=== PATIENT | female | born 1955 | race Caucasian/White ===

== ENCOUNTER 2019-04-05 21:27 | Observation (INO) | payer MEDICARE, MEDICAID ==
[~2019-04-05] VITALS: Ht 170.2 cm; Wt 108.0 kg
[~2019-04-05 21:27] MED LIST: ALLP100T; COLC0.6T7 PO; EXEN10PE4; FOLI1TAB7; FURO40TA4; KCL10CCR; MAGN200T3; MTF500T; MYCO500T34; SPIR25TA3; [UNRECOGNIZED DRUG - OTHER]
[2019-04-05 21:45] LABS: BASOPHILS # (AUTO) 0.1 10^3/uL (0.0-0.1); BASOPHILS % (AUTO) 1 % (0-10); EOSINOPHILS # (AUTO) 0.5 10^3/uL (0.0-0.3); EOSINOPHILS % (AUTO) 4 % (0-10); HEMATOCRIT 44 % (35-52); HEMOGLOBIN 14.9 G/DL (11.5-16.0); LYMPHOCYTES # (AUTO) 7.2 X 10^3 (1.0-4.0); LYMPHOCYTES % (AUTO) 48 % (12-44); MEAN CORPUSCULAR HEMOGLOBIN 29 PG (25-34); MEAN CORPUSCULAR HGB CONC 34 G/DL (32-36); MEAN CORPUSCULAR VOLUME 87 FL (80-99); MEAN PLATELET VOLUME 10.9 FL (7.4-10.4); MONOCYTES # (AUTO) 1.6 X 10^3 (0.0-1.0); MONOCYTES % (AUTO) 11 % (0-12); NEUTROPHILS # (AUTO) 5.5 X 10^3 (1.8-7.8); NEUTROPHILS % (AUTO) 37 % (42-75); PLATELET COUNT 382 10^3/uL (130-400); RED CELL DISTRIBUTION WIDTH 14.6 % (10.0-14.5); WHITE BLOOD COUNT 14.9 10^3/uL (4.3-11.0)
[2019-04-05] MEDS ORDERED: ASPIRIN 81 MG CHEW (CHILDREN'S ASA) PO ONE (21:45)
[2019-04-05 21:58] LABS: INR 0.9 (0.8-1.4); PROTHROMBIN TIME PATIENT 12.1 SEC (12.2-14.7)
--- NOTE | 2019-04-05 22:02 | Diagnostic Imaging Report ---
INDICATION: Chest pain Upright portable AP view of the chest is obtained. There is borderline cardiomegaly. No pneumothorax or consolidation is identified. There is no significant pleural fluid. IMPRESSION: Borderline cardiomegaly without other acute abnormality detected. Dictated by: Dictated on workstation # [id number]
[2019-04-05 22:03] LABS: ALANINE AMINOTRANSFERASE 55 U/L (0-55); ALBUMIN 4.2 GM/DL (3.2-4.5); ALKALINE PHOSPHATASE 122 U/L (40-136); AMYLASE 43 U/L (25-125); BILIRUBIN,TOTAL 0.4 MG/DL (0.1-1.0); BUN/CREATININE RATIO 16; CALCIUM 9.9 MG/DL (8.5-10.1); CARBON DIOXIDE 24 MMOL/L (21-32); CHLORIDE 103 MMOL/L (98-107); CREATINE KINASE 83 U/L (29-168); CREATININE SERUM 1.02 MG/DL (0.60-1.30); GFR ESTIMATED 54; GLUCOSE 267 MG/DL (70-105); LIPASE 47 U/L (8-78); MAGNESIUM 2.4 MG/DL (1.8-2.4); POTASSIUM 3.6 MMOL/L (3.6-5.0); SODIUM 143 MMOL/L (135-145); TOTAL PROTEIN 7.8 GM/DL (6.4-8.2)
[2019-04-05 22:08] LABS: BAND NEUTROPHILS 0 %; BASOPHILS % (MANUAL) 0 %; EOSINOPHILS % (MANUAL) 5 %; LYMPHOCYTES % (MANUAL) 50 %; MONOCYTES % (MANUAL) 5 %; NEUTROPHILS % (MANUAL) 40 %; RBC MORPH NORMAL
--- NOTE | 2019-04-05 22:08 | ED Chest Pain ---
General Chief Complaint: Chest Pain Stated Complaint: CP Nursing Triage Note: PT AMB TO RM 6 WITH COMPLAINT OF INTERMITTENT CHEST PAIN. STATES PAIN STARTED APPROX HOUR AND 20 MINUTES PARTS COUNTERPERSON. STATES PAIN IS RESOLVED BY TIME OF ARRIVAL. Nursing Sepsis Screen: No Definite Risk Source: patient History of Present Illness Date Seen by Provider: April 05, 2019 Time Seen by Provider: 21:35 Initial Comments PT ARRIVES VIA POV FROM HOME STATES SHE BEGAN HAVING CHEST PAIN AROUND 1930 TONIGHT WHILE SITTING IN CHAIR PAIN WOULD COME AND GO, OVER ABOUT AN HOUR PAIN IS GONE NOW PT STATES SHE HAD BEEN [facility] AND TO [employer] [facility] TODAY, AND STATES SHE FELT A LITTLE SHORT OF BREATH ON THE CAR RIDE HOME, BECAUSE OF HIGH HUMIDITY AND NO AIR CONDITIONING ON IN THE CAR, BUT NO SHORTNESS OF BREATH SINCE THEN THEN DID A BIT OF "WEED EATING" FOR A SHORT PERIOD OF TIME, AND DID NOT HAVE ANY PROBLEMS WENT INSIDE AND SAT DOWN TO REST, AND HAD BEEN SITTING FOR AWHILE BEFORE THE PAIN BEGAN PT HAS NOT HAD SHORTNESS OF BREATH WITH THE PAIN NO SWEATS NO PALPITATIONS NO DIZZINESS NO NAUSEA/VOMITING NO SWELLING IN LEGS/ FEET OR PAIN IN CALVES PT HAS HISTORY OF CAD WITH STENT X 1 SEVERAL YEARS AGO--WAS DONE IN [place], [place]. HAS NOT SEEN A [employer] FOR YEARS PCP: DR. YORK STATES [place], AND MOVED BACK HERE 06/2018 Allergies and Home Medications Allergies Coded Allergies: Sulfa (Sulfonamide Antibiotics) (Verified Allergy, Unknown, 06/14/09) codeine (Verified Allergy, Unknown, 06/14/09) diazepam (Verified Allergy, Unknown, 06/14/09) Uncoded Allergies: TAPE (Allergy, Unknown, 06/14/09) Home Medications Colchicine 0.6 Mg Tablet, 1 EACH PO BID Prescribed by: JEREMY SELLERS on 04/11/10 1805 Folic Acid/Multivits-Min/Lut 1 Each Tab.chew, daily, (Reported) Furosemide 40 Mg Tablet, bid, (Reported) Mycophenolate Mofetil 500 Mg Tablet, bid, (Reported) Spironolactone 25 Mg Tablet, bid, (Reported) Patient Home Medication List Home Medication List Reviewed: Yes Review of Systems Review of Systems Constitutional: no symptoms reported; No chills, No dizziness, No fever, No malaise EENTM: No Symptoms Reported Respiratory: See HPI Cardiovascular: See HPI Gastrointestinal: No Symptoms Reported; Denies Abdominal Pain, Denies Nausea, Denies Vomiting; Other (S/P LIVER TRANSPLANT IN 1999) Genitourinary: No Symptoms Reported Musculoskeletal: no symptoms reported Skin: no symptoms reported Psychiatric/Neurological: No Symptoms Reported Endocrine: No Symptoms Reported (HAS IDDM) Hematologic/Lymphatic: No Symptoms Reported Past [id number]-Ahtwqs Hx Patient Social History Alcohol Use: Past History (HISTORY OF ABUSE, CLAIMS NONE FOR YEARS) Recreational Drug Use: Yes (HX OF IV CRACK COCAINE AND IV "DOWNERS"; METH USE, ACID, PCP, THC) Drug of Choice: +IV CRACK COCAINE AND "DOWNERS", SPEED/METH, LSD, PCP, THC Smoking Status: Never a Smoker Recent Foreign Travel: No Contact w/Someone Who Travel: No Recent Infectious Disease Expo: No Recent Hopitalizations: No Immunizations Up To Date Tetanus Booster (TDap): Unknown PED Vaccines UTD: Yes Seasonal Allergies Seasonal Allergies: No Past Medical History Surgeries: Yes (LIVER TRANSPLANT IN 1999; CARDIAC CATH--STENT X 1 IN 2012; HYST /BSO; 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, PER PT; RIGHT LUNG "SCRAPED" AND RIB REMOVED 1998; ) Abdominal, Gallbladder, Hysterectomy, Liver Transplant, Tonsillectomy Respiratory: Yes (RIGHT LUNG "SCRAPED" AND RIB REMOVED 1998) Cardiac: Yes (STENT X 1; "ANEURYSM BEHIND SPLEEN" ) Chronic Edema/Swelling, Coronary Artery Disease, High Cholesterol, Hypertension Neurological: No RN BEHAVIORAL HEALTH History: Hysterectomy Genitourinary: No Gastrointestinal: Yes (LIVER TRANSPLANT 1999; HEPATITIS C--S/P TREATMENT AND LIVER TRANSPLANT; 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, PER PT ) Liver Disease/Jaundice, Hepatitis Musculoskeletal: No Endocrine: Yes Diabetes, Insulin dep HEENT: No Tonsilitis Cancer: No Psychosocial: Yes (HX OF POLYSUBSTANCE ABUSE) Integumentary: No Blood Disorders: No Physical Exam Vital Signs Vital Signs - First Documented 04/05/19 21:30 Pulse 86 Resp 20 B/P (MAP) 176/107 (130) Pulse Ox 97 O2 Delivery Room Air Capillary Refill : Less Than 3 Seconds Height, Weight, BMI Height: 5'7.00" Weight: 233lbs. oz. 105.299564az; BMI Method:Stated General Appearance: No Apparent Distress, Obese, Other (SMILING, TALKATIVE) Neck: Full Range of Motion, Normal Inspection, Non Tender, Supple; No Carotid Bruit Respiratory: Chest Non Tender, Normal Breath Sounds, No Accessory Muscle Use, No Respiratory Distress Cardiovascular: Regular Rate, Rhythm, No Edema, No JVD, No Murmur, Normal Peripheral Pulses Gastrointestinal: Normal Bowel Sounds, No Organomegaly, No Pulsatile Mass, Non Tender, Soft Extremity: Normal Capillary Refill, Normal Inspection, Normal Range of Motion, Non Tender, No Calf Tenderness, No Pedal Edema Neurologic/Psychiatric: Alert, Oriented x3, No Motor/Sensory Deficits, Normal Mood/Affect, layout inspector II-XII Norm as Tested Skin: Normal Color, Warm/Dry Progress/Results/Core Measures Results/Orders Lab Results Laboratory Tests Test 04/05/19 21:39 Range/Units White Blood Count 14.9 H 4.3-11.0 10^3/uL Red Blood Count 5.11 4.35-5.85 10^6/uL Hemoglobin 14.9 11.5-16.0 G/DL Hematocrit 44 35-52 % Mean Corpuscular Volume 87 80-99 FL Mean Corpuscular Hemoglobin 29 25-34 PG Mean Corpuscular Hemoglobin Concent 34 32-36 G/DL Red Cell Distribution Width 14.6 H 10.0-14.5 % Platelet Count 382 130-400 10^3/uL Mean Platelet Volume 10.9 H 7.4-10.4 FL Neutrophils (%) (Auto) 37 L 42-75 % Lymphocytes (%) (Auto) 48 H 12-44 % Monocytes (%) (Auto) 11 0-12 % Eosinophils (%) (Auto) 4 0-10 % Basophils (%) (Auto) 1 0-10 % Neutrophils # (Auto) 5.5 1.8-7.8 X 10^3 Lymphocytes # (Auto) 7.2 H 1.0-4.0 X 10^3 Monocytes # (Auto) 1.6 H 0.0-1.0 X 10^3 Eosinophils # (Auto) 0.5 H 0.0-0.3 10^3/uL Basophils # (Auto) 0.1 0.0-0.1 10^3/uL Neutrophils % (Manual) 40 % Lymphocytes % (Manual) 50 % Monocytes % (Manual) 5 % Eosinophils % (Manual) 5 % Basophils % (Manual) 0 % Band Neutrophils 0 % Blood Morphology Comment NORMAL Prothrombin Time 12.1 L 12.2-14.7 SEC INR Comment 0.9 0.8-1.4 Activated Partial Thromboplast Time 29 24-35 SEC Sodium Level 143 135-145 MMOL/L Potassium Level 3.6 3.6-5.0 MMOL/L Chloride Level 103 98-107 MMOL/L Carbon Dioxide Level 24 21-32 MMOL/L Anion Gap 16 H 5-14 MMOL/L Blood Urea Nitrogen 16 7-18 MG/DL Creatinine 1.02 0.60-1.30 MG/DL Estimat Glomerular Filtration Rate 54 BUN/Creatinine Ratio 16 Glucose Level 267 H 70-105 MG/DL Calcium Level 9.9 8.5-10.1 MG/DL Corrected Calcium 9.7 8.5-10.1 MG/DL Magnesium Level 2.4 1.8-2.4 MG/DL Total Bilirubin 0.4 0.1-1.0 MG/DL Aspartate Amino Transf (AST/SGOT) 50 H 5-34 U/L Alanine Aminotransferase (ALT/SGPT) 55 0-55 U/L Alkaline Phosphatase 122 40-136 U/L Total Creatine Kinase 83 29-168 U/L Creatine Kinase MB 0.8 <6.6 NG/ML Myoglobin 42.2 10.0-92.0 NG/ML Troponin I < 0.028 <0.028 NG/ML B-Type Natriuretic Peptide 104.6 H <100.0 PG/ML Total Protein 7.8 6.4-8.2 GM/DL Albumin 4.2 3.2-4.5 GM/DL Amylase Level 43 25-125 U/L Lipase 47 8-78 U/L My Orders Orders - MARYELLEN VICTORIA DO Cbc With Automated Diff (04/05/19 21:34) Magnesium (04/05/19 21:34) Chest 1 View, Ap/Pa Only (04/05/19 21:34) Ekg Tracing (04/05/19 21:34) Cardiac Profile 1 (04/05/19 21:34) Comprehensive Metabolic Panel (04/05/19 21:34) Myoglobin Serum (04/05/19 21:34) Protime With Inr (04/05/19 21:34) Partial Thromboplastin Time (04/05/19 21:34) O2 (04/05/19 21:34) Monitor-Rhythm Ecg Trace Only (04/05/19 21:34) Ed Iv/Invasive Line Start (04/05/19 21:34) Creatine Kinase (04/05/19 21:34) Creatine Kinase Mb (04/05/19 21:34) Lipase (04/05/19 21:34) Amylase (04/05/19 21:34) BNP (04/05/19 21:34) Aspirin Chewable Tablet (Baby Aspirin Ch (04/05/19 21:45) Manual Differential (04/05/19 21:39) Insulin (Regular) Human (Humulin R (Per (04/05/19 22:30) Medications Given in ED Current Medications Medications Dose Ordered Sig/Brett Route Start Time Stop Time Status Last Admin Dose Admin Aspirin 324 mg ONCE ONCE PO 04/05/19 21:45 04/05/19 21:46 DC 04/05/19 21:48 324 MG Insulin Human Regular 20 unit ONCE ONCE IV 04/05/19 22:30 04/05/19 22:31 DC 04/05/19 22:43 20 UNIT Sodium Chloride 50 ml @ ud STK-MED ONCE .ROUTE 04/05/19 22:39 04/05/19 22:43 DC 04/05/19 22:43 50 MLS/HR Vital Signs/I&O 04/05/19 21:30 Pulse 86 Resp 20 B/P (MAP) 176/107 (130) Pulse Ox 97 O2 Delivery Room Air Blood Pressure Mean: 130 Progress Progress Note : Progress Note NO PAIN OR ANY OTHER SYMPTOMS DURING ER STAY Initial ECG Impression Date: April 05, 2019 Initial ECG Impression Time: 21:36 Initial ECG Rate: 80 Initial ECG Rhythm: Normal Sinus Departure Communication (Admissions) 2236--SPOKE WITH DR. SELLERS, ACCEPTS PT FOR ADMIT. Impression Primary Impression: Chest pain Additional Impressions: IDDM (insulin dependent diabetes mellitus) S/P liver transplant Disposition: ADMITTED INPATIENT Condition: Improved Admissions Decision to Admit Reason: Admit from ER (General) Decision to Admit/Date: April 05, 2019 Time/Decision to Admit Time: 23:40 Departure-Patient Inst. Referrals: DARIUSZ YORK DO (PCP/Family) Primary Care Physician MARYELLEN VICTORIA DO April 05, 2019 22:08
[2019-04-05 22:11] LABS: CREATINE KINASE MB 0.8 NG/ML (<6.6)
[2019-04-05] MEDS ORDERED: inSUlin (REGULAR) HUMAN 1 UNIT/0.01 ML (CHARGE PER UNIT) IV ONE (22:30)
[2019-04-05] MEDS ORDERED: NS (IVPB) 50 ML ONE (22:39)
[2019-04-05] MEDS ORDERED: TACROLIMUS 0.5 MG CAPSULE (22:51)
[2019-04-05] MEDS ORDERED: METFORMIN HCL ER 500 MG TABLET (22:51)
[2019-04-05] MEDS ORDERED: HYDROXYZINE PAM (22:51)
[2019-04-05] MEDS ORDERED: TRAZODONE 100 MG TABLET (22:51)
[2019-04-05] MEDS ORDERED: PAK (22:51)
[2019-04-05] MEDS ORDERED: VICTOZA (22:51)
[2019-04-05] MEDS ORDERED: MYCOPHENOLATE 250 MG CAPSULE (22:51)
[2019-04-05] MEDS ORDERED: FUROSEMIDE 40 MG TABLET (22:51)
[2019-04-05] MEDS ORDERED: POTASSIUM CL ER 10 MEQ TABLET (22:51)
--- NOTE | 2019-04-05 23:38 | NUR ---
TATY PAYNE admitted to room CU12-1, with an admitting diagnosis of Chest pain,IDDM,Hx of CAD, S/P Liver transplant 1999, on 04/05/19 from [facility] ED via wheelchair, accompanied by staff.TATY PAYNE introduced to surroundings, call light, bed controls, phone, TV, temperature control, lights, meal times, smoking policy, visitor policy, side rail policy, bathrooms and showers. Patient Rights given to patient in the handbook. TATY PAYNE verbalizes understanding that [facility] is not responsible for the loss or damage to any personal effects or valuables that are kept in the patients possession during their hospitalization. The following Patient Care Plans were discussed with the patient: Discharge Planning, chest pain,protocol, and room orientation. TATY PAYNE verbalizes understanding of Interdisciplinary Patient Education. Patient and/or family were informed about the Rapid Response Team and its purpose.
[2019-04-05 23:47] VITALS: BP 141/81
[2019-04-06] VITALS (13 sets, daily range): BP systolic 99–144; BP diastolic 54–78
--- NOTE | 2019-04-06 00:33 | NUR ---
Patient arrived to ICU room 12 via wheelchair. Patient daughter in route from [place]. Patient had elevated Glucose of 267 via lab in ED, was administered 20 units IV insulin. Patient glucose via finger stick upon arrival to ICU room is 61.
[2019-04-06] MEDS ORDERED: morphine INJ 4 MG/ML 1 ML (VIAL/SYRINGE) IV PRN (01:00)
[2019-04-06] MEDS ORDERED: NITROGLYCERIN 0.4 MG SL TABS BTL 25'S SL PRN (01:00)
[2019-04-06 03:53] LABS: BASOPHILS # (AUTO) 0.1 10^3/uL (0.0-0.1); BASOPHILS % (AUTO) 1 % (0-10); EOSINOPHILS # (AUTO) 0.6 10^3/uL (0.0-0.3); EOSINOPHILS % (AUTO) 3 % (0-10); HEMATOCRIT 40 % (35-52); HEMOGLOBIN 13.2 G/DL (11.5-16.0); LYMPHOCYTES # (AUTO) 7.4 X 10^3 (1.0-4.0); LYMPHOCYTES % (AUTO) 39 % (12-44); MEAN CORPUSCULAR HEMOGLOBIN 29 PG (25-34); MEAN CORPUSCULAR HGB CONC 33 G/DL (32-36); MEAN CORPUSCULAR VOLUME 87 FL (80-99); MEAN PLATELET VOLUME 10.7 FL (7.4-10.4); MONOCYTES # (AUTO) 2.3 X 10^3 (0.0-1.0); MONOCYTES % (AUTO) 12 % (0-12); NEUTROPHILS # (AUTO) 8.4 X 10^3 (1.8-7.8); NEUTROPHILS % (AUTO) 45 % (42-75); PLATELET COUNT 360 10^3/uL (130-400); RED CELL DISTRIBUTION WIDTH 14.4 % (10.0-14.5); WHITE BLOOD COUNT 18.7 10^3/uL (4.3-11.0)
[2019-04-06 04:18] LABS: ALANINE AMINOTRANSFERASE 51 U/L (0-55); ALBUMIN 3.5 GM/DL (3.2-4.5); ALKALINE PHOSPHATASE 104 U/L (40-136); BILIRUBIN,TOTAL 0.3 MG/DL (0.1-1.0); BUN/CREATININE RATIO 17; CALCIUM 9.5 MG/DL (8.5-10.1); CARBON DIOXIDE 26 MMOL/L (21-32); CHLORIDE 106 MMOL/L (98-107); CHOLESTEROL 217 MG/DL (< 200); CREATININE SERUM 0.88 MG/DL (0.60-1.30); GFR ESTIMATED > 60; GLUCOSE 251 MG/DL (70-105); HDL CHOLESTEROL 43 MG/DL (40-60); POTASSIUM 3.1 MMOL/L (3.6-5.0); SODIUM 144 MMOL/L (135-145); TOTAL PROTEIN 6.3 GM/DL (6.4-8.2); TRIGLYCERIDES 179 MG/DL (<150); VLDL CHOLESTEROL 36 MG/DL (5-40)
[2019-04-06 04:26] LABS: CARDIAC PROFILE 2 < 0.028 NG/ML (<0.028)
[2019-04-06] MEDS: inSUlin ASPART (NovoLOG) 1 UNIT/0.01 ML (CHARGE PER UNIT) SC SCH ×4 (06:05→21:41)
[2019-04-06] MEDS ORDERED: POTA10TA10 PO (08:32)
[2019-04-06] MEDS ORDERED: ASPIRIN E.C. 81 MG (ECOTRIN) TAB PO SCH (09:00)
[2019-04-06] MEDS ORDERED: TRAZ-190 PO (09:02)
[2019-04-06] MEDS ORDERED: INSU100I32 SC (09:02)
[2019-04-06] MEDS ORDERED: ALLO100T PO (09:02)
[2019-04-06] MEDS ORDERED: HYDR50CA3 PO (09:02)
[2019-04-06] MEDS ORDERED: METF500T8 PO (09:02)
[2019-04-06] MEDS ORDERED: MOME17SP9 NS (09:02)
[2019-04-06] MEDS ORDERED: CARV6.252 PO (09:02)
[2019-04-06] MEDS ORDERED: LIRA0.6P3 SC (09:02)
[2019-04-06] MEDS ORDERED: MYCO250C4 PO (09:02)
[2019-04-06] MEDS ORDERED: FURO40TA4 PO (09:02)
[2019-04-06] MEDS ORDERED: TACR0.5C6 PO (09:02)
[2019-04-06] MEDS ORDERED: NIAC500T24 PO (09:09)
[2019-04-06] MEDS ORDERED: MELA10TA2 PO (09:09)
[2019-04-06] MEDS ORDERED: ASPI-983 PO (09:09)
[2019-04-06] MEDS ORDERED: MULT-1029 PO (09:09)
[2019-04-06] MEDS ORDERED: MAGN400T39 PO (09:09)
[2019-04-06] MEDS ORDERED: CHOL10007 PO (09:09)
[2019-04-06] MEDS ORDERED: NFBIOT1000 PO (09:09)
[2019-04-06] MEDS ORDERED: RED600CA2 PO (09:09)
[2019-04-06] MEDS ORDERED: CALC1TAB PO (09:16)
--- NOTE | 2019-04-06 09:17 | NUR ---
WENT OVER THE EXT MED HX WITH THE PATIENT AND SHE VERIFIED HOW SHE TAKES THEM. SHE STATES SHE IS NO LONGER TAKING THE METFORMIN, IT HAS BEEN DISCONTINUED. SHE TAKES THE FOLLOWING OTC: CALTRATE DAILY VITAMIN D 2 DAILY AT 1100 ASPIRIN 81MG 1500 NIACIN 2 HS RED YEAST RICE 2 HS BIOTIN HS MAG OX 400 BID MELATONIN 10MG HS MTV DAILY
--- NOTE | 2019-04-06 13:20 | Consultation-Cardiology ---
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 She presented with an episode of prolonged chest pain which was substernal. No radiation. Sharp, not going away. Moderate to severe intensity. No exacerbating or relieving factors. The patient has history of CAD and PCI 2 years ago, likely to the LAD. The patient also has history of diabetes, hepatitis C, cirrhosis of the liver, status post liver transplant on immunosuppressive therapy with CellCept and Prograf. The patient has not had any nuclear stress test since the PCI. However she tells me that she cannot have a chemical nuclear stress test. Review of Systems-Cardiology Review of Systems Constitutional: As described under HPI; No As described under HPI, No no symptoms reported, No chills, No fever, No lightheadedness Eyes: No As described under HPI, No no symptoms reported, No blindness, No blurred vision, No contact lenses, No drainage, No decreased acuity, No foreign body sensation, No pain, No vision change Ears/Nose/Throat: No As described under HPI, No no symptoms reported, No chronic hearing loss, No ear discharge, No ear pain, No nasal drainage, No ulcerations Respiratory: No no symptoms reported; As described under HPI; No As described under HPI, No cough, No orthopnea, No shortness of breath, No SOB with excertion Cardiovascular: No no symptoms reported; As described under HPI; No As described under HPI; chest pain; No edema, No irregular heart rate, No lightheadedness, No palpitations Gastrointestinal: No no symptoms reported, No As described under HPI, No abdomen distended, No abdominal pain, No blood streaked bowels, No constipation , No diarrhea, No nausea, No vomiting, No stool coloration changes Genitourinary: No As described under HPI, No burning, No dysuria, No discharge , No frequency, No flank pain, No hematuria, No urgency : Yes : No Skin: No rash, No skin related problems, No ulcerations Psychiatric/Neurological: No anxiety, No depression, No seizure, No focal weakness, No syncope Hematologic: No bleeding abnormalities [id number] Hx Patient Social History Alcohol Use: Past History (HISTORY OF ABUSE, CLAIMS NONE FOR YEARS) Recreational Drug Use: Yes (HX OF IV CRACK COCAINE AND IV "DOWNERS"; METH USE, ACID, PCP, THC) Drug of Choice: +IV CRACK COCAINE AND "DOWNERS", SPEED/METH, LSD, PCP, THC Smoking Status: Never a Smoker Recent Foreign Travel: No Recent Infectious Disease Expo: No Hospitalization with Isolation: Denies Immunizations Up To Date Tetanus Booster (TDap): Unknown Date of Pneumonia Vaccine: Sep 06, 2018 Past Medical History PMH As described under Assessment. Family Medical History Family History: Cirrhosis of liver 19 MOTHER, , Onset:60 years & older Diabetes mellitus 19 MOTHER, , Onset:Unknown FH: CHF (congestive heart failure) 19 FATHER, , Onset:60 years & older FH: CVA (cerebrovascular accident) 19 MOTHER, , Onset:60 years & older FH: cerebral palsy G8 BROTHER, , Onset:Childhood FH: ovarian cancer G8 SISTER, , Onset:40's - 50 Myocardial infarction 19 MOTHER, , Onset:60 years & older Stillbirth G8 BROTHER, , Onset:[place] Allergies and Home Medications Allergies Coded Allergies: Sulfa (Sulfonamide Antibiotics) (Verified Allergy, Unknown, 06/14/09) codeine (Verified Allergy, Unknown, 06/14/09) diazepam (Verified Allergy, Unknown, 06/14/09) Uncoded Allergies: TAPE (Allergy, Unknown, 06/14/09) Home Medications Allopurinol 100 Mg Tablet, 100 MG PO BID, (Reported) Aspirin 81 Mg Tablet.dr, 81 MG PO 1500, (Reported) Biotin 1,000 Mcg Tablet, 1,000 MCG PO HS, (Reported) Calcium Carbonate/Vitamin D3 1 Each Tablet, 1 TAB PO DAILY, (Reported) Carvedilol 6.25 Mg Tablet, 6.25 MG PO BID, (Reported) Cholecalciferol (Vitamin D3) 1,000 Unit Capsule, 2,000 UNIT PO 1100, (Reported) Furosemide 40 Mg Tablet, 40 MG PO BID, (Reported) Hydroxyzine Pamoate 50 Mg Capsule, 50 MG PO HS, (Reported) Insulin Degludec 100 Unit/1 Ml Insuln.pen, 36 UNITS SC DAILY, (Reported) Liraglutide 0.6 Mg/0.1 Ml Pen.injctr, 1.8 MG SC DAILY, (Reported) Magnesium Oxide 400 Mg Tablet, 400 MG PO BID, (Reported) Melatonin 10 Mg Tablet, 10 MG PO HS, (Reported) Mometasone Furoate 17 Gm [place].pump, 2 SPRAYS NS DAILY PRN for CONGESTION, ( Reported) Multivit-Min/FA/Lycopene/Lut 1 Each Tablet, 1 TAB PO DAILY, (Reported) Mycophenolate Mofetil 250 Mg Capsule, 250 MG PO BID, (Reported) Niacinamide 500 Mg Tablet, 1,000 MG PO HS, (Reported) Potassium Chloride 10 Meq Tablet.er, 10 MEQ PO BID, (Reported) Red Yeast Rice 600 Mg Capsule, 1,200 MG PO HS, (Reported) Tacrolimus 0.5 Mg Capsule, 0.5 MG PO BID, (Reported) Trazodone HCl 100 Mg Tablet, 100 MG PO HS PRN for SLEEP, (Reported) Patient Home Medication List Home Medication List Reviewed: Yes Physical Exam-Cardiology Physical Exam Vital Signs/I&O 04/06/19 04/06/19 04/06/19 04/06/19 02:00 03:00 03:35 04:00 Temp 97.2 Pulse 93 87 82 Resp 16 13 11 B/P (MAP) 139/64 (89) 125/64 (84) 114/54 (74) Pulse Ox 95 95 95 O2 Delivery Room Air Room Air Room Air Room Air 04/06/19 04/06/19 04/06/19 04/06/19 05:00 07:09 08:00 09:00 Temp 97.1 Pulse 84 81 81 Resp 8 14 B/P (MAP) 112/64 (80) 142/75 (97) Pulse Ox 96 97 96 O2 Delivery Room Air Room Air Room Air 04/06/19 12:03 Temp 97.8 Pulse 79 Resp 14 B/P (MAP) 127/78 (94) Pulse Ox 95 O2 Delivery Room Air 04/05/19 23:59 Intake Total 50 ml Balance 50 ml Capillary Refill : Less Than 3 Seconds Constitutional: appears stated age, AAO x 3; No apparent distress; well- developed, well-nourished HEENT: PERRL; No normal ENT inspection, No TMs normal, No pharynx normal, No scleral icterus (R), No scleral icterus (L), No pale conjunctivae (R), No pale conjunctivae (L), No photophobia, No TM abnormal (R), No TM abnormal (L), No pharyngeal erythema, No tonsillar exudate, No other, No discharge, No EOMI; hearing is well preserved; No hard of hearing; oral hygience is good; No ulceration, No xanthelasmas are seen Neck: No non-tender, No full range of motion, No supple, No normal inspection, No carotid bruit, No limited range of motion, No lymphadenopathy (R), No lymphadenopathy (L), No tender lateral, No tender midline, No thyromegaly, No other; carotid pulses are 2 + bilaterally; No with good upstrokes Respiratory: No accessory muscle use, No respiratory distress, No chest tender , No chest expansion is symmetric; chest is bilaterally symmetric; No lungs clear to percussion, No lungs clear to auscultation, No crackles, No rhonchi, No rales, No stridor, No wheezing, No pleural rub, No other Cardiovascular: regular rate-rhythm; No irregularly irregular, No extra beats, No parasternal heave is noted, No JVD, No edema, No bradycardia, No tachycardia , No point of maximal impulse, No cardiac thrills are palpable; S1 and S2; No gallop/S3, No gallop/S4, No diastolic murmur, No systolic murmur, No friction rub, No click, No other Gastrointestinal: No tender, No soft, No round, No distended, No pulsatile mass , No organomegaly, No guarding, No rebound, No tenderness, No hernia, No mass, No audible bowel sounds, No abnormal bowel sounds, No abdominal bruits, No spleenomegaly, No other Rectal: deferred Extremities: No normal range of motion, No non-tender, No normal inspection, No pedal edema, No calf tenderness, No normal capillary refill, No pelvis stable , No calf tenderness, No inflammation, No pedal edema, No slow capillary refill , No swelling, No other, No abrasion, No clubbing, No cyanosis, No ecchymosis, No laceration, No no lower extremity edema bilateral, No significant edema, No tenderness, No wound Neurologic/Psychiatric: no motor/sensory deficits, alert, normal mood/affect, oriented x 3, power is 5/5 both on sides Skin: No normal color, No warm/dry, No cyanosis, No cool, No diaphoresis, No damp, No ecchymosis, No jaundice, No mottled, No pallor, No rash, No tattoos/ piercings, No ulcerations, No rash on exposed areas, No ulcerations on exposed areas, No other Data Review Labs Laboratory Tests 04/05/19 21:39: White Blood Count 14.9H, Red Blood Count 5.11, Hemoglobin 14.9, Hematocrit 44, Mean Corpuscular Volume 87, Mean Corpuscular Hemoglobin 29, Mean Corpuscular Hemoglobin Concent 34, Red Cell Distribution Width 14.6H, Platelet Count 382, Mean Platelet Volume 10.9H, Neutrophils (%) (Auto) 37L, Lymphocytes (%) (Auto) 48H, Monocytes (%) (Auto) 11, Eosinophils (%) (Auto) 4, Basophils (%) (Auto) 1, Neutrophils # (Auto) 5.5, Lymphocytes # (Auto) 7.2H, Monocytes # (Auto) 1.6H, Eosinophils # (Auto) 0.5H, Basophils # (Auto) 0.1, Neutrophils % (Manual) 40, Lymphocytes % (Manual) 50, Monocytes % (Manual) 5, Eosinophils % (Manual) 5, Basophils % (Manual) 0, Band Neutrophils 0, Blood Morphology Comment NORMAL, Prothrombin Time 12.1L, INR Comment 0.9, Activated Partial Thromboplast Time 29 , Sodium Level 143, Potassium Level 3.6, Chloride Level 103, Carbon Dioxide Level 24, Anion Gap 16H, Blood Urea Nitrogen 16, Creatinine 1.02, Estimat Glomerular Filtration Rate 54, BUN/Creatinine Ratio 16, Glucose Level 267H, Calcium Level 9.9, Corrected Calcium 9.7, Magnesium Level 2.4, Total Bilirubin 0.4, Aspartate Amino Transf (AST/SGOT) 50H, Alanine Aminotransferase (ALT/SGPT) 55, Alkaline Phosphatase 122, Total Creatine Kinase 83, Creatine Kinase MB 0.8, Myoglobin 42.2, Troponin I < 0.028, B-Type Natriuretic Peptide 104.6H, Total Protein 7.8, Albumin 4.2, Amylase Level 43, Lipase 47 04/05/19 23:09: Glucometer 141H 04/05/19 23:50: Glucometer 61L 04/06/19 00:08: Glucometer 99 04/06/19 03:45: White Blood Count 18.7H, Red Blood Count 4.59, Hemoglobin 13.2, Hematocrit 40, Mean Corpuscular Volume 87, Mean Corpuscular Hemoglobin 29, Mean Corpuscular Hemoglobin Concent 33, Red Cell Distribution Width 14.4, Platelet Count 360, Mean Platelet Volume 10.7H, Neutrophils (%) (Auto) 45, Lymphocytes (%) (Auto) 39 , Monocytes (%) (Auto) 12, Eosinophils (%) (Auto) 3, Basophils (%) (Auto) 1, Neutrophils # (Auto) 8.4H, Lymphocytes # (Auto) 7.4H, Monocytes # (Auto) 2.3H, Eosinophils # (Auto) 0.6H, Basophils # (Auto) 0.1, Sodium Level 144, Potassium Level 3.1L, Chloride Level 106, Carbon Dioxide Level 26, Anion Gap 12, Blood Urea Nitrogen 15, Creatinine 0.88, Estimat Glomerular Filtration Rate > 60, BUN/ Creatinine Ratio 17, Glucose Level 251H, Calcium Level 9.5, Corrected Calcium 9.9, Total Bilirubin 0.3, Aspartate Amino Transf (AST/SGOT) 41H, Alanine Aminotransferase (ALT/SGPT) 51, Alkaline Phosphatase 104, Troponin I < 0.028, Total Protein 6.3L, Albumin 3.5, Triglycerides Level 179H, Cholesterol Level 217H, LDL Cholesterol Direct 160H, VLDL Cholesterol 36, HDL Cholesterol 43 04/06/19 06:03: Glucometer 173H 04/06/19 12:16: Glucometer 166H ECG Impression ECG Initial ECG Rhythm: Normal Sinus Initial ECG Impression: Normal A/P-Cardiology Assessment/Admission Diagnosis Prolonged episode of chest pain, History of CAD, Diabetes, Hyperlipidemia, Hypertension, History of liver transplant, on immunosuppressive therapy, Leukocytosis Plan Prolonged episode of chest pain, serial negative troponin. Negative EKG. I will recommend a treadmill nuclear stress test tomorrow. I would also recommend an echocardiogram. History of CAD, continue aspirin, carvedilol. Diabetes, on insulin. Hyperlipidemia, significantly elevated total cholesterol and LDL. The patient is not on any statins. Only on red yeast. Considering history of liver transplant, I will consider pravastatin or ezetimibe. Hypertension, continue carvedilol. History of liver transplant, on immunosuppressive therapy, defer to the primary team. Leukocytosis, deferred to the primary team. Thank you for your consultation. Please call me if you have any questions. Darin Cabrera MD, FACP, FACC, FSCAI, FHRS, CCDS Interventional Cardiology Cardiac Electrophysiology Vascular Medicine and Endovascular Interventions Clinical Quality Measures AMI/AHF: ASA po Prior to arrival: Yes DVT/VTE Risk/Contraindication: Risk Factor Score Per Nursin RFS Level Per Nursing on Admit: 3=High Serenity CABRERA MD April 06, 2019 13:20
[2019-04-06] MEDS ORDERED: PATIENT MAY USE OWN MEDS, ALL MC SCH (13:30)
[2019-04-06] MEDS ORDERED: traZODone 100 MG (DESYREL) TAB PO PRN (14:00)
[2019-04-06] MEDS ORDERED: FLUTICASONE NASAL SPRAY (FLONASE) 16 GM BTL NS PRN (14:41)
[2019-04-06] MEDS ORDERED: ASPIRIN 81 MG CHEW (CHILDREN'S ASA) PO SCH (15:00)
[2019-04-06] MEDS: VITAMIN D3 1,000 UNITS (CHOLECALCIFEROL) TABLET PO SCH (15:44)
--- NOTE | 2019-04-06 16:28 | History & Physical-Hospitalist ---
History of Present Illness HPI/Chief Complaint The patient is a 64-year-old white female who presented to the emergency room last evening with complaints of chest pain. She reports that the pain began about an hour and a half before she presented to the emergency room. She noted that she had done yard work including weed eating earlier in the day. Also of interest was the fact that she is a diabetic and also that she has a liver transplant which was done in 1999 as a result of hepatitis C. Date Seen 04/06/19 Time Seen by a Provider: 16:21 Attending Physician Sean Sellers MD PCP Gabriel Tineo DO Referring Physician Date of Admission April 05, 2019 at 22:40 Home Medications & Allergies Home Medications Reviewed patient Home Medication Reconciliation performed by pharmacy medication reconciliations community development technician and/or nursing. Patients Allergies have been reviewed. Allergies Allergies Coded Allergies Sulfa (Sulfonamide Antibiotics) (Verified Allergy, Unknown, 06/14/09) codeine (Verified Allergy, Unknown, 06/14/09) diazepam (Verified Allergy, Unknown, 06/14/09) Uncoded Allergies TAPE ( Allergy, Unknown, 06/14/09) Past Jmlvcel-Ljuuff-Zuimkc Hx Patient Social History Alcohol Use: Past History (HISTORY OF ABUSE, CLAIMS NONE FOR YEARS) Recreational Drug Use: Yes (HX OF IV CRACK COCAINE AND IV "DOWNERS"; METH USE, ACID, PCP, THC) Drug of Choice: +IV CRACK COCAINE AND "DOWNERS", SPEED/METH, LSD, PCP, THC Smoking Status: Never a Smoker Recent Foreign Travel: No Contact w/other who traveled: No Recent Hopitalizations: No Recent Infectious Disease Expo: No Immunizations Up To Date Tetanus Booster (TDap): Unknown Pediatric: Yes Date of Pneumonia Vaccine: Sep 06, 2018 Seasonal Allergies Seasonal Allergies: No Past Medical History Surgeries: Abdominal, Gallbladder, Hysterectomy, Liver Transplant, Tonsillectomy Cardiac: Chronic Edema/Swelling, Coronary Artery Disease, High Cholesterol, Hypertension : No Hysterectomy Gastrointestinal: Liver Disease/Jaundice, Hepatitis Endocrine: Diabetes, Insulin dep HEENT: Tonsilitis History of Blood Disorders: No Family History Cirrhosis of liver 19 MOTHER, , Onset:60 years & older Diabetes mellitus 19 MOTHER, , Onset:Unknown FH: CHF (congestive heart failure) 19 FATHER, , Onset:60 years & older FH: CVA (cerebrovascular accident) 19 MOTHER, , Onset:60 years & older FH: cerebral palsy G8 BROTHER, , Onset:Childhood FH: ovarian cancer G8 SISTER, , Onset:40's - 50 Myocardial infarction 19 MOTHER, , Onset:60 years & older Stillbirth G8 BROTHER, , Onset: Review of Systems Constitutional: see HPI EENTM: no symptoms reported Respiratory: no symptoms reported Cardiovascular: see HPI, chest pain Gastrointestinal: other (liver transplant) Physical Exam Physical Exam Vital Signs Vital Signs - First Documented 04/05/19 04/05/19 21:30 23:47 Temp 98.0 Pulse 86 Resp 20 B/P (MAP) 176/107 (130) Pulse Ox 97 O2 Delivery Room Air Capillary Refill : Less Than 3 Seconds Height, Weight, BMI Height: 5'7.00" Weight: 238lbs. 0.0oz. [id number]; 37.3 BMI Method:Stated General Appearance: No Apparent Distress, WD/WN Eyes: Bilateral Eye Normal Inspection HEENT: Normal ENT Inspection Neck: Full Range of Motion, Normal Inspection, Non Tender Respiratory: Chest Non Tender, Lungs Clear, Normal Breath Sounds, No Accessory Muscle Use, No Respiratory Distress Cardiovascular: Regular Rate, Rhythm, No Edema, No Gallop, No JVD, No Murmur Gastrointestinal: Normal Bowel Sounds, Non Tender Back: Normal Inspection Neurologic/Psychiatric: Alert, Oriented x3, No Motor/Sensory Deficits, Normal Mood/Affect Skin: Normal Color, Warm/Dry Lymphatic: No Adenopathy Results Results/Procedures Labs Laboratory Tests 04/05/19 21:39 04/06/19 03:45 Patient resulted labs reviewed. Assessment/Plan Admission Diagnosis Chest pain 2.diabetes type II. 3.history hepatitis C with liver transplant in 1999. 4.leukocytosis with lymphocytes dominance. 5.immunosuppression relative to liver transplant Admission Status: Inpatient Order (span 2 midnights) Clinical Quality Measures AMI/AHF: ASA po Prior to arrival: Yes DVT/VTE Risk/Contraindication: Risk Factor Score Per Nursin RFS Level Per Nursing on Admit: 3=High SEAN SELLERS MD April 06, 2019 16:28
[2019-04-06] MEDS: ACETAMINOPHEN 325 MG TABLET PO PRN ×2 (16:33→21:45)
[2019-04-06] MEDS ORDERED: KCL 10 MEQ TAB (MICRO K) PO SCH (17:00)
[2019-04-06] MEDS ORDERED: MAGNESIUM OXIDE (MAG-OX)400 MG TAB PO SCH (17:00)
[2019-04-06] MEDS ORDERED: FUROSEMIDE 40 MG (LASIX) TAB PO SCH (17:00)
[2019-04-06] MEDS ORDERED: BIOTIN 10000 MCG PO SCH (21:00)
[2019-04-06] MEDS ORDERED: HYDROXYZINE PAM PO SCH (21:00)
[2019-04-06] MEDS ORDERED: NIACIN 500 MG TABLET PO SCH (21:00)
[2019-04-06] MEDS ORDERED: MELATONIN 3 MG TABLET PO SCH (21:00)
--- NOTE | 2019-04-06 21:26 | CONSULTATION REPORT ---
DATE OF SERVICE: 04/06/2019 REFERRING PHYSICIAN: Sean Jenkins MD THE PATIENT IS ADMITTED TO: ICU bed 12. IMPRESSION: 1. A 64-year-old female admitted to the hospital with chest pain and undergoing workup. 2. Leukocytosis and lymphocytosis of undetermined etiology. 3. Previous history of splenectomy approximately 6 years ago. 4. Previous history of liver transplant in 1999. RECOMMENDATIONS: 1. The leukocytosis is most likely due to splenectomy, but because of the disproportionate lymphocytosis, I will obtain a peripheral blood flow cytometry to rule out a lymphoproliferative disorder. 2. Continue workup and management of chest pain as you are doing. 3. Please schedule two to three weeks follow up [facility] to review the results of the flow cytometry. HISTORY OF PRESENT ILLNESS: The patient is a 64-year-old female who has history of coronary artery disease and stent placement in the distant past who came to the emergency room with the chest pain. She was admitted to the hospital for further evaluation and is planning an exercise stress test done tomorrow. She was noted to have leukocytosis and lymphocytosis at the time of admission and hematology consultation was requested for further evaluation. The patient denied any fevers or night sweats. No significant weight loss over the last six months even though she has been trying to lose weight. No new lumps or masses. PAST MEDICAL HISTORY: Significant for diabetes mellitus, history of hepatitis C and underwent liver transplantation in 1999. She has had treatment for the hepatitis C at least twice with clearance of virus several years ago. She has previous history of coronary artery disease requiring a stent placement several years ago. PAST SURGICAL HISTORY: Includes tonsillectomy and adenoidectomy in childhood. Cholecystectomy with liver transplant in 1999. TAHBSO in the past. She had a right lung biopsy in 1998. 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 Also had a cardiac catheterization and stent placement in 2012. SOCIAL HISTORY: The patient is single. She had lived with her partner for 29 years, but about 2 years ago. 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 She has significant history of polysubstance abuse including crack cocaine, methamphetamine, PCP acid, THC, etc. including IV. She denied any tobacco or substance abuse now, but occasionally uses small amount of alcohol on social situations. She has a daughter who lives near [place]. FAMILY HISTORY: Significant for her sister who with ovarian cancer while in her early 40s. Cousin on the paternal side of the family diagnosed with breast cancer in her early 40s. No other malignancies in the family that the patient knows of. Her mother had diabetes mellitus. PHYSICAL EXAMINATION: GENERAL: Today showed a middle-aged female, well developed and nourished, awake and oriented and in no acute distress. VITAL SIGNS: Her temperature was 97.8, pulse rate of 79, respirations 14, blood pressure 127/78 with oxygen saturation of 95% on room air. HEENT: Normocephalic, extraocular muscles intact, conjunctivae pink, oral mucosa are moist without lesions. NECK: Supple, with no JVD. No cervical, supraclavicular or axillary lymphadenopathy palpable. CHEST: Symmetrical. LUNGS: Fairly clear to auscultation without wheezes or rales. CARDIOVASCULAR: Regular rate and rhythm. No murmurs or gallops heard. ABDOMEN: Soft with healed surgical scars. No hepatosplenomegaly or other masses palpable. EXTREMITIES: Showed no edema or ecchymosis. NEUROLOGIC: Grossly intact without focal motor deficits. LABORATORY DATA: CBC done last night at the time of admission showed white count of 14.9, hemoglobin 14.9, platelet count 382,000 with neutrophil count 5.5, lymphocyte count 7.2, monocyte count 1.6 and eosinophil count 0.5. Previous CBC on 06/03/2012 showed white count 6.4, hemoglobin 14.8 and platelet count 178,000 with neutrophil count 3.3, lymphocyte count 2.0 and monocyte count 0.8. Chemistry panel done today morning showed normal electrolytes except potassium level of 3.1. BUN was 15 and creatinine 0.88 with GFR more than 60 mL per minute. Nonfasting blood glucose level was 251. AST was minimally elevated at 41 with the rest of the liver function studies within normal limits. Serum albumin level was 3.5. Thank you for allowing me to participate in this patient's care. I will follow the patient with you and make appropriate recommendations. Job ID: [id number] DocumentID: [id number] Dictated Date: 04/06/2019 17:07:59 Documentation Designer Date: 04/06/2019 21:26:31 Dictated By: MD ROSARIO LOYD
[2019-04-06] MEDS: CARVEDILOL 6.25 MG (COREG) TAB PO SCH (21:34)
[2019-04-06] MEDS: MYCOPHENOLATE 250 MG PO SCH (21:34)
[2019-04-06] MEDS: FUROSEMIDE 40 MG (LASIX) TAB PO SCH (21:35)
[2019-04-06] MEDS: KCL 10 MEQ TAB (MICRO K) PO SCH (21:35)
[2019-04-06] MEDS: MAGNESIUM OXIDE (MAG-OX)400 MG TAB PO SCH (21:36)
[2019-04-06] MEDS: TACROLIMUS 0.5 MG (PROGRAF) CAP NON-FORMULARY PO SCH (21:37)
[2019-04-06] MEDS: ALLOPURINOL 100 MG (ZYLOPRIM) TAB PO SCH (21:37)
[2019-04-07] VITALS: BP 138/68
[2019-04-07 04:00] VITALS: BP 133/75
[2019-04-07] MEDS: inSUlin ASPART (NovoLOG) 1 UNIT/0.01 ML (CHARGE PER UNIT) SC SCH ×2 (06:43→12:03)
[2019-04-07] MEDS ORDERED: CALCIUM CARB + VIT D 600 MG (CALCARB + D) TAB PO SCH (07:00)
[2019-04-07] MEDS ORDERED: MULTIVIT W/MINERALS TAB (THERAGRAN M) PO SCH (07:00)
[2019-04-07] MEDS ORDERED: REGADENOSON 0.4 MG/5 ML SYR (LEXISCAN) IV ONE ×2 (07:00→08:36)
[2019-04-07] MEDS ORDERED: CATHETER FLUSH 10 ML SYR IV PRN (07:45)
[2019-04-07 08:00] VITALS: BP 145/86
[2019-04-07 08:56] VITALS: BP 145/92
[2019-04-07 08:57] VITALS: BP 151/93
[2019-04-07] MEDS ORDERED: Insulin Degludec (Tresiba Flextouch U-100) SC SCH (09:00)
[2019-04-07] MEDS: TACROLIMUS 0.5 MG (PROGRAF) CAP NON-FORMULARY PO SCH (10:03)
[2019-04-07] MEDS: MAGNESIUM OXIDE (MAG-OX)400 MG TAB PO SCH (10:03)
[2019-04-07] MEDS: FUROSEMIDE 40 MG (LASIX) TAB PO SCH (10:03)
[2019-04-07] MEDS: KCL 10 MEQ TAB (MICRO K) PO SCH (10:04)
[2019-04-07] MEDS: CARVEDILOL 6.25 MG (COREG) TAB PO SCH (10:05)
[2019-04-07] MEDS: MYCOPHENOLATE 250 MG PO SCH (10:05)
[2019-04-07] MEDS: ALLOPURINOL 100 MG (ZYLOPRIM) TAB PO SCH (10:06)
[2019-04-07] MEDS: VITAMIN D3 1,000 UNITS (CHOLECALCIFEROL) TABLET PO SCH (10:06)
[2019-04-07 11:00] VITALS: BP 145/83
[2019-04-07] MEDS: ACETAMINOPHEN 325 MG TABLET PO PRN (11:39)
--- NOTE | 2019-04-07 13:39 | Progress Note-Hospitalist ---
Progress Note Progress Notes/Assess & Plan Date Seen 04/07/19 Time Seen by Provider: 13:35 Assessment & Plan The patient has completed her stress test and is awaiting Dr. GERMAIN's assessment. She has had no further chest pain and is eager to be discharged. Physical exam: She is alert and oriented. Lungs are clear to auscultation. CV is regular without murmur. Impression: Chest pain without evidence of infarct. 2.history of liver failure secondary to hepatitis C with long-term liver transplant. 3.diabetes mellitus type II. Plan: Await Dr. GERMAIN's report JEREMY SELLERS MD April 07, 2019 13:39
--- NOTE | 2019-04-07 17:03 | Cardiology Progress Note ---
Cardiology SOAP Progress Note Subjective: No further chest pain. Objective: I&O/Vital Signs 04/07/19 04/07/19 04/07/19 04/07/19 07:00 08:00 08:56 08:57 Temp 98.1 Pulse 81 88 82 106 Resp 20 18 18 B/P (MAP) 145/86 (105) 145/92 (109) 151/93 (112) Pulse Ox 96 95 98 O2 Delivery Room Air Room Air Room Air 04/07/19 04/07/19 04/07/19 09:00 11:00 12:02 Temp 97.1 B/P (MAP) 145/83 (103) Pulse Ox 95 O2 Delivery Room Air 04/07/19 00:00 Intake Total 1190 ml Balance 1190 ml Weight (Pounds): 238 Weight (Ounces): 0.0 Weight (Calculated Kilograms): 107.628955 Constitutional: appears stated age, AAO x 3; No apparent distress; well- developed, well-nourished Respiratory: No accessory muscle use, No respiratory distress, No chest tender , No chest expansion is symmetric; chest is bilaterally symmetric; No lungs clear to percussion, No lungs clear to auscultation, No crackles, No rhonchi, No rales, No stridor, No wheezing, No pleural rub, No other Cardiovascular: regular rate-rhythm; No irregularly irregular, No extra beats, No parasternal heave is noted, No JVD, No edema, No bradycardia, No tachycardia , No point of maximal impulse, No cardiac thrills are palpable; S1 and S2; No gallop/S3, No gallop/S4, No diastolic murmur, No systolic murmur, No friction rub, No click, No other Gastrointestional: No tender, No soft, No round, No distended, No pulsatile mass, No organomegaly, No guarding, No rebound, No tenderness, No hernia, No mass, No audible bowel sounds, No abnormal bowel sounds, No abdominal bruits, No spleenomegaly, No other Extremities: No normal range of motion, No non-tender, No normal inspection, No pedal edema, No calf tenderness, No normal capillary refill, No pelvis stable , No calf tenderness, No inflammation, No pedal edema, No slow capillary refill , No swelling, No other, No abrasion, No clubbing, No cyanosis, No ecchymosis, No laceration, No no lower extremity edema bilateral, No significant edema, No tenderness, No wound Neurologic/Psychiatric: no motor/sensory deficits, alert, normal mood/affect, oriented x 3, power is 5/5 both on sides Skin: No normal color, No warm/dry, No cyanosis, No cool, No diaphoresis, No damp, No ecchymosis, No jaundice, No mottled, No pallor, No rash, No tattoos/ piercings, No ulcerations, No rash on exposed areas, No ulcerations on exposed areas, No other Results/Procedures: Labs Laboratory Tests 04/06/19 21:08: Glucometer 163H 04/07/19 03:25: 04/07/19 06:41: Glucometer 145H 04/07/19 11:31: Glucometer 284H 04/07/19 13:13: Glucometer 168H A/P: Assessment/Dx: Prolonged episode of chest pain, History of CAD, Diabetes, Hyperlipidemia, Hypertension, History of liver transplant, on immunosuppressive therapy, Leukocytosis Plan: Prolonged episode of chest pain, serial negative troponin. Negative EKG. Lexiscan nuclear stress test was negative for any infarct or ischemia. Normal LV function. History of CAD, continue aspirin, carvedilol. Diabetes, on insulin. Hyperlipidemia, significantly elevated total cholesterol and LDL. The patient is not on any statins. Only on red yeast. Considering history of liver transplant, pravastatin or ezetimibe are recommended. Hypertension, continue carvedilol. History of liver transplant, on immunosuppressive therapy, defer to the primary team. Leukocytosis, deferred to the primary team. Thank you for your consultation. Please call me if you have any questions. Darin Cabrera MD, FACP, FACC, FSCAI, FHRS, CCDS Interventional Cardiology Cardiac Electrophysiology Vascular Medicine and Endovascular Interventions Clinical Quality Measures AMI/AHF: ASA po Prior to arrival: Yes Serenity CABRERA MD April 07, 2019 17:03
--- NOTE | 2019-04-07 17:53 | Cardiology Stress Test Report ---
Stress Test Report Type of NM Stress Test: Test Type: LEXISCAN 0.4MG/5ML Date of Procedure/Referring: Date of Procedure: April 07, 2019 PCP Sean Jenkins MD Admitting Physician Gabriel Tineo DO Indications: Chest pain, history of CAD Baseline Heart Rate: 88 Baseline Blood Pressure: Blood Pressure Systolic: 145 Blood Pressure Diastolic: 83 Baseline EKG: Baseline EKG: sinus rhythm Summary & Conclusion: Summary: The patient was brought to the stress lab after informed consent was taken. Stress test was performed according to the Lexiscan protocol. 0.4 mg of IV Lexiscan was given. Low-grade exercise was performed. Baseline EKG showed sinus rhythm at 88 BPM. Initial blood pressure was 160/89 mmHg. Maximum heart rate was 94 bpm and blood pressure 159/87 mmHg. Patient did not have any chest pain, arrhythmias or ST segment changes during the stress test. 10.64 mCi of Myoview were given for rest imaging and 29.8 mCi of Myoview given for stress imaging. Transient ischemic dilatation score 0.99, EF 77 percent. Normal wall motion. Normal myocardial perfusion imaging during rest and stress. Conclusion: Pharmacological stress test was negative for ischemia. Normal LV function with no wall motion abnormalities. Normal myocardial perfusion imaging during rest and stress. Serenity GERMAIN MD April 07, 2019 17:53
== END 2019-04-07 15:53 | disposition home or self-care (01) ==
LOC: EDUNIT# 21:27 → ER 21:28 → ICU 22:40
PROVIDERS: ADMIT Internal Medicine; ATTEND Internal Medicine
DX: R07.9 Chest pain, unspecified (principal); I25.10 Atherosclerotic heart disease of native coronary artery without angina pectoris; E11.9 Type 2 diabetes mellitus without complications; E78.5 Hyperlipidemia, unspecified; I10 Essential (primary) hypertension; D72.829 Elevated white blood cell count, unspecified; Z94.4 Liver transplant status; D72.820 Lymphocytosis (symptomatic); Z90.81 Acquired absence of spleen; Z86.19 Personal history of other infectious and parasitic diseases; Z95.5 Presence of coronary angioplasty implant and graft; Z88.2 Allergy status to sulfonamides; Z88.5 Allergy status to narcotic agent; Z79.899 Other long term (current) drug therapy; Z79.4 Long term (current) use of insulin
CPT/HCPCS: 36415; 71045; 78452; 80053; 80061; 82150; 82550; 82553; 82962; 83690; 83735; 83874; 83880; 84484; 85007; 85025; 85027; 85610; 85730; 88184; 88185; 93005; 93017; 93041; 93306; 96374

== ENCOUNTER 2019-05-09 14:32 | Outpatient (RCR) | payer MEDICARE, MEDICAID ==
[~2019-05-09 14:32] MED LIST changes: +ALLO100T PO; +ASPI-983 PO; +CALC1TAB PO; +CARV6.252 PO; +CHOL10007 PO; +FURO40TA4 PO; +FUROSEMIDE 40 MG TABLET; +HYDR50CA3 PO; +HYDROXYZINE PAM; +INSU100I32 SC; +LIRA0.6P3 SC; +MAGN400T39 PO; +MELA10TA2 PO; +METF500T8 PO; +METFORMIN HCL ER 500 MG TABLET; +MOME17SP9 NS; +MULT-1029 PO; +MYCO250C4 PO; +MYCOPHENOLATE 250 MG CAPSULE; +NFBIOT1000 PO; +NIAC500T24 PO; +PAK; +POTA10TA10 PO; +POTASSIUM CL ER 10 MEQ TABLET; +RED600CA2 PO; +TACR0.5C6 PO; +TACROLIMUS 0.5 MG CAPSULE; +TRAZ-190 PO; +TRAZODONE 100 MG TABLET; +VICTOZA
[2019-05-09 15:25] LABS: BASOPHILS # (AUTO) 0.1 10^3/uL (0.0-0.1); BASOPHILS % (AUTO) 1 % (0-10); EOSINOPHILS # (AUTO) 0.6 10^3/uL (0.0-0.3); EOSINOPHILS % (AUTO) 5 % (0-10); HEMATOCRIT 44 % (35-52); HEMOGLOBIN 14.6 G/DL (11.5-16.0); LYMPHOCYTES # (AUTO) 3.9 X 10^3 (1.0-4.0); LYMPHOCYTES % (AUTO) 30 % (12-44); MEAN CORPUSCULAR HEMOGLOBIN 29 PG (25-34); MEAN CORPUSCULAR HGB CONC 33 G/DL (32-36); MEAN CORPUSCULAR VOLUME 87 FL (80-99); MEAN PLATELET VOLUME 10.7 FL (7.4-10.4); MONOCYTES # (AUTO) 1.3 X 10^3 (0.0-1.0); MONOCYTES % (AUTO) 10 % (0-12); NEUTROPHILS # (AUTO) 7.1 X 10^3 (1.8-7.8); NEUTROPHILS % (AUTO) 55 % (42-75); PLATELET COUNT 423 10^3/uL (130-400); RED CELL DISTRIBUTION WIDTH 15.3 % (10.0-14.5); WHITE BLOOD COUNT 12.9 10^3/uL (4.3-11.0)
== END 2019-08-07 | disposition home or self-care (01) ==
LOC: ONC 14:32
PROVIDERS: ATTEND Internal Medicine Hematology & Oncology
DX: D72.820 Lymphocytosis (symptomatic) (principal); Z90.81 Acquired absence of spleen
CPT/HCPCS: 85025; 99213

== ENCOUNTER 2019-08-08 14:01 | Outpatient (RCR) | payer MEDICARE, MEDICAID ==
[~2019-08-08 14:01] MED LIST changes: +METF500T19 PO; -METF500T8 PO
[2019-08-08 14:18] LABS: BASOPHILS # (AUTO) 0.1 10^3/uL (0.0-0.1); BASOPHILS % (AUTO) 1 % (0-10); EOSINOPHILS # (AUTO) 0.6 10^3/uL (0.0-0.3); EOSINOPHILS % (AUTO) 5 % (0-10); HEMATOCRIT 44 % (35-52); HEMOGLOBIN 14.8 G/DL (11.5-16.0); LYMPHOCYTES # (AUTO) 4.8 X 10^3 (1.0-4.0); LYMPHOCYTES % (AUTO) 42 % (12-44); MEAN CORPUSCULAR HEMOGLOBIN 29 PG (25-34); MEAN CORPUSCULAR HGB CONC 34 G/DL (32-36); MEAN CORPUSCULAR VOLUME 86 FL (80-99); MEAN PLATELET VOLUME 10.7 FL (7.4-10.4); MONOCYTES # (AUTO) 1.4 X 10^3 (0.0-1.0); MONOCYTES % (AUTO) 12 % (0-12); NEUTROPHILS # (AUTO) 4.5 X 10^3 (1.8-7.8); NEUTROPHILS % (AUTO) 40 % (42-75); PLATELET COUNT 360 10^3/uL (130-400); RED CELL DISTRIBUTION WIDTH 15.2 % (10.0-14.5); WHITE BLOOD COUNT 11.3 10^3/uL (4.3-11.0)
[2019-08-08 14:46] LABS: ALANINE AMINOTRANSFERASE 51 U/L (0-55); ALKALINE PHOSPHATASE 107 U/L (40-136); BILIRUBIN,TOTAL 0.8 MG/DL (0.1-1.0); BUN/CREATININE RATIO 14; CALCIUM 9.8 MG/DL (8.5-10.1); CARBON DIOXIDE 28 MMOL/L (21-32); CHLORIDE 104 MMOL/L (98-107); CREATININE SERUM 0.93 MG/DL (0.60-1.30); GFR ESTIMATED > 60; GLUCOSE 137 MG/DL (70-105); POTASSIUM 3.7 MMOL/L (3.6-5.0); SODIUM 142 MMOL/L (135-145); TOTAL PROTEIN 7.2 GM/DL (6.4-8.2)
== END 2019-11-06 | disposition home or self-care (01) ==
LOC: LAB 14:01
PROVIDERS: ATTEND Internal Medicine
DX: Z01.89 Encounter for other specified special examinations (principal); Z94.4 Liver transplant status; Z79.899 Other long term (current) drug therapy
CPT/HCPCS: 36415; 80053; 80197; 85025

== ENCOUNTER 2019-11-04 13:17 | Outpatient (RCR) | payer MEDICARE, MEDICAID ==
[~2019-11-04 13:17] MED LIST changes: -TRAZ-190 PO; +TRAZ-227 PO
[2019-11-04 13:34] LABS: BASOPHILS # (AUTO) 0.1 10^3/uL (0.0-0.1); BASOPHILS % (AUTO) 0 % (0-10); EOSINOPHILS # (AUTO) 0.6 10^3/uL (0.0-0.3); EOSINOPHILS % (AUTO) 3 % (0-10); HEMATOCRIT 45 % (35-52); HEMOGLOBIN 15.1 G/DL (11.5-16.0); LYMPHOCYTES # (AUTO) 8.6 X 10^3 (1.0-4.0); LYMPHOCYTES % (AUTO) 41 % (12-44); MEAN CORPUSCULAR HEMOGLOBIN 29 PG (25-34); MEAN CORPUSCULAR HGB CONC 34 G/DL (32-36); MEAN CORPUSCULAR VOLUME 87 FL (80-99); MEAN PLATELET VOLUME 11.1 FL (7.4-10.4); MONOCYTES # (AUTO) 2.2 X 10^3 (0.0-1.0); MONOCYTES % (AUTO) 11 % (0-12); NEUTROPHILS # (AUTO) 9.5 X 10^3 (1.8-7.8); NEUTROPHILS % (AUTO) 45 % (42-75); PLATELET COUNT 400 10^3/uL (130-400); RED CELL DISTRIBUTION WIDTH 14.9 % (10.0-14.5); WHITE BLOOD COUNT 20.9 10^3/uL (4.3-11.0)
[2019-11-04 13:45] LABS: ALBUMIN 3.8 GM/DL (3.2-4.5); CALCIUM 9.2 MG/DL (8.5-10.1); CREATININE SERUM 0.96 MG/DL (0.60-1.30); POTASSIUM 3.8 MMOL/L (3.6-5.0); TOTAL PROTEIN 6.8 GM/DL (6.4-8.2)
[2019-11-04 14:15] LABS: BAND NEUTROPHILS 0 %; BASOPHILS % (MANUAL) 0 %; EOSINOPHILS % (MANUAL) 3 %; LYMPHOCYTES % (MANUAL) 21 %; MONOCYTES % (MANUAL) 5 %; NEUTROPHILS % (MANUAL) 41 %; RBC MORPH NORMAL; REACTIVE LYMPHOCYTES 30 %
== END 2020-02-02 | disposition home or self-care (01) ==
LOC: LAB 13:17
PROVIDERS: ATTEND Internal Medicine
DX: Z94.4 Liver transplant status (principal); Z79.899 Other long term (current) drug therapy
CPT/HCPCS: 80053; 80197; 85007; 85027

== ENCOUNTER → 2019-11-04 | Outpatient (CLI) | payer MEDICARE, MEDICAID | LOC: LAB 13:20 | PROVIDERS: ATTEND Internal Medicine Gastroenterology | DX: Z13.220 Encounter for screening for lipoid disorders (principal); Z86.39 Personal history of other endocrine, nutritional and metabolic disease; Z94.4 Liver transplant status; Z79.899 Other long term (current) drug therapy | CPT/HCPCS: 36415; 82306; 82570; 84156 ==

== ENCOUNTER 2020-02-28 11:15 | Outpatient (RCR) | payer MEDICARE, MEDICAID ==
[~2020-02-28 11:15] MED LIST changes: +METF-865 PO; -METF500T19 PO
[2020-02-28 11:27] LABS: BASOPHILS # (AUTO) 0.1 10^3/uL (0.0-0.1); BASOPHILS % (AUTO) 1 % (0-10); EOSINOPHILS # (AUTO) 0.6 10^3/uL (0.0-0.3); EOSINOPHILS % (AUTO) 5 % (0-10); HEMATOCRIT 45 % (35-52); HEMOGLOBIN 14.7 G/DL (11.5-16.0); LYMPHOCYTES # (AUTO) 6.3 X 10^3 (1.0-4.0); LYMPHOCYTES % (AUTO) 48 % (12-44); MEAN CORPUSCULAR HEMOGLOBIN 28 PG (25-34); MEAN CORPUSCULAR HGB CONC 33 G/DL (32-36); MEAN CORPUSCULAR VOLUME 87 FL (80-99); MEAN PLATELET VOLUME 10.6 FL (7.4-10.4); MONOCYTES # (AUTO) 1.5 X 10^3 (0.0-1.0); MONOCYTES % (AUTO) 11 % (0-12); NEUTROPHILS # (AUTO) 4.5 X 10^3 (1.8-7.8); NEUTROPHILS % (AUTO) 35 % (42-75); PLATELET COUNT 447 10^3/uL (130-400); RED CELL DISTRIBUTION WIDTH 15.2 % (10.0-14.5)
[2020-02-28 11:47] LABS: BILIRUBIN,TOTAL 0.7 MG/DL (0.1-1.0); CALCIUM 9.7 MG/DL (8.5-10.1); CREATININE SERUM 1.17 MG/DL (0.60-1.30); POTASSIUM 3.7 MMOL/L (3.6-5.0); TOTAL PROTEIN 7.6 GM/DL (6.4-8.2)
== END 2020-05-28 | disposition still patient (30) ==
LOC: LAB 11:15
PROVIDERS: ATTEND Internal Medicine
DX: Z01.89 Encounter for other specified special examinations (principal); Z94.4 Liver transplant status; Z79.899 Other long term (current) drug therapy
CPT/HCPCS: 36415; 80053; 80197; 85025

== ENCOUNTER → 2020-05-15 | Outpatient (CLI) | payer MEDICARE, MEDICAID ==
[2020-05-15 09:31] LABS: BASOPHILS # (AUTO) 0.1 10^3/uL (0.0-0.1); BASOPHILS % (AUTO) 1 % (0-10); EOSINOPHILS # (AUTO) 0.7 10^3/uL (0.0-0.3); EOSINOPHILS % (AUTO) 5 % (0-10); HEMATOCRIT 43 % (35-52); HEMOGLOBIN 14.5 G/DL (11.5-16.0); LYMPHOCYTES # (AUTO) 5.6 X 10^3 (1.0-4.0); LYMPHOCYTES % (AUTO) 43 % (12-44); MEAN CORPUSCULAR HEMOGLOBIN 29 PG (25-34); MEAN CORPUSCULAR HGB CONC 34 G/DL (32-36); MEAN CORPUSCULAR VOLUME 87 FL (80-99); MEAN PLATELET VOLUME 10.7 FL (7.4-10.4); MONOCYTES # (AUTO) 1.7 X 10^3 (0.0-1.0); MONOCYTES % (AUTO) 13 % (0-12); NEUTROPHILS % (AUTO) 38 % (42-75); PLATELET COUNT 377 10^3/uL (130-400); RED CELL DISTRIBUTION WIDTH 14.8 % (10.0-14.5); WHITE BLOOD COUNT 13.1 10^3/uL (4.3-11.0)
[2020-05-15 09:58] LABS: ALBUMIN 3.9 GM/DL (3.2-4.5); BILIRUBIN,TOTAL 0.5 MG/DL (0.1-1.0); CALCIUM 9.9 MG/DL (8.5-10.1); CREATININE SERUM 1.06 MG/DL (0.60-1.30); POTASSIUM 3.8 MMOL/L (3.6-5.0); TOTAL PROTEIN 7.2 GM/DL (6.4-8.2)
== END ==
LOC: LAB 08:50
PROVIDERS: ATTEND Internal Medicine
DX: Z94.4 Liver transplant status (principal); Z79.899 Other long term (current) drug therapy
CPT/HCPCS: 36415; 80053; 80197; 85025

== ENCOUNTER → 2020-08-16 | Outpatient (CLI) | payer MEDICAID, MEDICARE ==
[~2020-08-16] MED LIST changes: +ASPI-1238 PO; -ASPI-983 PO
== END ==
LOC: RAD 14:28
PROVIDERS: ATTEND Internal Medicine
DX: Z12.31 Encounter for screening mammogram for malignant neoplasm of breast (principal)
CPT/HCPCS: 77063; 77067

== ENCOUNTER → 2021-01-11 | Outpatient (CLI) | payer OTHER, MEDICAID ==
--- NOTE | 2021-01-11 10:40 | Diagnostic Imaging Report ---
INDICATION: Liver transplant. EXAMINATION: Ultrasound of the liver and right upper quadrant was performed in routine fashion, including Doppler of the hepatic vessels. FINDINGS: The liver show normal echogenicity with no focal lesions. Hepatic veins are patent with normal flow direction. Main portal vein and right and left portal vein are patent and normal appearance. Hepatic arterial flow is seen with normal low-resistance waveform. Splenic vein is patent. The IVC is patent. Patient has had prior splenectomy. IMPRESSION: Unremarkable sonographic appearance of the transplanted liver. Hepatic vasculature is patent as above. Dictated by: Dictated on workstation # [id number]
== END ==
LOC: RAD 08:42
PROVIDERS: ATTEND Nurse Practitioner Family
DX: K75.81 Nonalcoholic steatohepatitis (NASH) (principal); R94.5 Abnormal results of liver function studies; Z94.4 Liver transplant status; Z79.899 Other long term (current) drug therapy; Z98.84 Bariatric surgery status; Z90.81 Acquired absence of spleen
CPT/HCPCS: 93975

== ENCOUNTER → 2021-05-02 | Outpatient (CLI) | payer OTHER, MEDICAID | LOC: CARD 12:00 | PROVIDERS: ATTEND Internal Medicine | DX: I51.7 Cardiomegaly (principal); I35.1 Nonrheumatic aortic (valve) insufficiency; M99.03 Segmental and somatic dysfunction of lumbar region; M99.04 Segmental and somatic dysfunction of sacral region; M46.06 Spinal enthesopathy, lumbar region | CPT/HCPCS: 93306 ==

== ENCOUNTER → 2021-05-03 | Outpatient (CLI) | payer OTHER, MEDICAID ==
[~2021-05-03] VITALS: Ht 170 cm; Wt 90.0 kg
[~2021-05-03] MED LIST changes: +CATHETER FLUSH 10 ML SYR IV PRN; +REGADENOSON 0.4 MG/5 ML SYR (LEXISCAN) IV ONE
[2021-05-03 08:08] VITALS: BP 145/65
--- NOTE | 2021-05-06 13:41 | STRESS TEST ---
DATE OF SERVICE: 05/03/2021 RESTING AND POST REGADENOSON TECHNETIUM-99M TETROFOSMIN SPECT CT IMAGING ORDERING PHYSICIAN: Dr. Tineo. PRIMARY PHYSICIAN: Dr. Tineo. CLINICAL DIAGNOSIS: Fatigue. Baseline images were carried out after injection of 10.9 mCi of technetium-99m Tetrofosmin. This was followed by 0.4 mg regadenoson and 33 mCi of technetium-99m Tetrofosmin for stress imaging. The electrocardiogram showed sinus rhythm. The study was carried out under Dr. Tineo's supervision and the electrocardiographic portion of the study is reported separately by him. Review of images at rest and following stress does not indicate any significant perfusion defects consistent with myocardial ischemia or infarction. Gated images show normal global left ventricular systolic function with normal regional wall motion. Left ventricular ejection fraction is calculated to be 75%. Left ventricular end diastolic volume is 34 mL. CONCLUSIONS: 1. No evidence of any significant myocardial ischemia or infarction. 2. Normal regional wall motion. 3. Normal global left ventricular systolic function with a calculated ejection fraction of 75%. Job ID: [id number] DocumentID: [id number] Dictated Date: 05/06/2021 08:39:09 Anesthetist Date: 05/06/2021 13:40:40 Dictated By: RAMA PAIZ MD, MA, FACP, FACC,
== END ==
LOC: CARD 06:41
PROVIDERS: ATTEND Internal Medicine
DX: R53.83 Other fatigue (principal); M99.04 Segmental and somatic dysfunction of sacral region; M99.03 Segmental and somatic dysfunction of lumbar region; M46.06 Spinal enthesopathy, lumbar region
CPT/HCPCS: 78452; 93017; A9502

== ENCOUNTER → 2021-05-23 | Outpatient (CLI) | payer OTHER, MEDICAID ==
[~2021-05-23] MED LIST changes: -CATHETER FLUSH 10 ML SYR IV PRN; -REGADENOSON 0.4 MG/5 ML SYR (LEXISCAN) IV ONE
[2021-05-23 16:00] LABS: BASOPHILS # (AUTO) 0.1 10^3/uL (0.0-0.1); BASOPHILS % (AUTO) 1 % (0-10); EOSINOPHILS # (AUTO) 0.5 10^3/uL (0.0-0.3); EOSINOPHILS % (AUTO) 6 % (0-10); HEMATOCRIT 46 % (35-52); HEMOGLOBIN 14.9 g/dL (11.5-16.0); LYMPHOCYTES # (AUTO) 3.6 10^3/uL (1.0-4.0); LYMPHOCYTES % (AUTO) 42 % (12-44); MEAN CORPUSCULAR HEMOGLOBIN 29 pg (25-34); MEAN CORPUSCULAR HGB CONC 33 g/dL (32-36); MEAN CORPUSCULAR VOLUME 90 fL (80-99); MONOCYTES % (AUTO) 11 % (0-12); NEUTROPHILS # (AUTO) 3.4 10^3/uL (1.8-7.8); NEUTROPHILS % (AUTO) 40 % (42-75); PLATELET COUNT 396 10^3/uL (130-400); WHITE BLOOD COUNT 8.6 10^3/uL (4.3-11.0)
[2021-05-23 16:05] LABS: ALANINE AMINOTRANSFERASE 25 U/L (0-55); ALBUMIN 3.8 GM/DL (3.2-4.5); ALKALINE PHOSPHATASE 151 U/L (40-136); BILIRUBIN,TOTAL 0.9 MG/DL (0.1-1.0); BUN/CREATININE RATIO 23; CALCIUM 9.9 MG/DL (8.5-10.1); CARBON DIOXIDE 30 MMOL/L (21-32); CHLORIDE 102 MMOL/L (98-107); CREATININE SERUM 0.86 MG/DL (0.60-1.30); GFR ESTIMATED > 60; GLUCOSE 104 MG/DL (70-105); POTASSIUM 3.8 MMOL/L (3.6-5.0); SODIUM 142 MMOL/L (135-145); TOTAL PROTEIN 7.6 GM/DL (6.4-8.2)
[2021-05-23 16:34] LABS: PROTHROMBIN TIME PATIENT 13.1 SEC (12.2-14.7)
[2021-05-23 22:57] LABS: FK506 2.2 ng/mL
[2021-05-26 09:47] LABS: VITAMIN A INTERPRETATION Normal
== END ==
LOC: LAB 15:11
PROVIDERS: ATTEND Nurse Practitioner Family
DX: K75.81 Nonalcoholic steatohepatitis (NASH) (principal); Z94.4 Liver transplant status; Z79.899 Other long term (current) drug therapy
CPT/HCPCS: 36415; 80053; 80197; 82306; 82570; 82607; 82728; 82746; 83540; 83550; 83970; 84156; 84590; 85025; 85610

== ENCOUNTER → 2021-06-05 | Outpatient (CLI) | payer OTHER, MEDICAID | LOC: LAB 11:26 | PROVIDERS: ATTEND Nurse Practitioner Family | DX: K75.81 Nonalcoholic steatohepatitis (NASH) (principal); Z94.4 Liver transplant status; Z79.899 Other long term (current) drug therapy | CPT/HCPCS: 36415; 80197 ==

== ENCOUNTER → 2021-06-05 | Outpatient (CLI) | payer OTHER, MEDICAID ==
[2021-06-05 11:50] LABS: BASOPHILS # (AUTO) 0.1 10^3/uL (0.0-0.1); BASOPHILS % (AUTO) 1 % (0-10); EOSINOPHILS # (AUTO) 0.9 10^3/uL (0.0-0.3); EOSINOPHILS % (AUTO) 9 % (0-10); HEMATOCRIT 44 % (35-52); HEMOGLOBIN 14.7 g/dL (11.5-16.0); LYMPHOCYTES # (AUTO) 3.7 10^3/uL (1.0-4.0); LYMPHOCYTES % (AUTO) 37 % (12-44); MEAN CORPUSCULAR HEMOGLOBIN 30 pg (25-34); MEAN CORPUSCULAR HGB CONC 33 g/dL (32-36); MEAN CORPUSCULAR VOLUME 90 fL (80-99); MEAN PLATELET VOLUME 10.6 fL (9.0-12.2); MONOCYTES # (AUTO) 1.1 10^3/uL (0.0-1.0); MONOCYTES % (AUTO) 10 % (0-12); NEUTROPHILS # (AUTO) 4.4 10^3/uL (1.8-7.8); NEUTROPHILS % (AUTO) 43 % (42-75); PLATELET COUNT 375 10^3/uL (130-400); WHITE BLOOD COUNT 10.2 10^3/uL (4.3-11.0)
[2021-06-05 12:17] LABS: ALANINE AMINOTRANSFERASE 30 U/L (0-55); ALBUMIN 3.9 GM/DL (3.2-4.5); ALKALINE PHOSPHATASE 141 U/L (40-136); BUN/CREATININE RATIO 26; CALCIUM 10.1 MG/DL (8.5-10.1); CARBON DIOXIDE 29 MMOL/L (21-32); CHLORIDE 104 MMOL/L (98-107); CREATININE SERUM 0.86 MG/DL (0.60-1.30); GFR ESTIMATED > 60; GLUCOSE 121 MG/DL (70-105); POTASSIUM 3.7 MMOL/L (3.6-5.0); SODIUM 143 MMOL/L (135-145); TOTAL PROTEIN 7.2 GM/DL (6.4-8.2)
== END ==
LOC: LAB 11:19
PROVIDERS: ATTEND Surgery
DX: K75.81 Nonalcoholic steatohepatitis (NASH) (principal); Z98.84 Bariatric surgery status
CPT/HCPCS: 36415; 80053; 82306; 82607; 82728; 82746; 83540; 83550; 83970; 84590; 85025

== ENCOUNTER → 2021-06-18 | Outpatient (CLI) | payer OTHER, MEDICAID ==
--- NOTE | 2021-06-18 11:38 | Diagnostic Imaging Report ---
INDICATION: Postmenopausal screening COMPARISON: Baseline FINDINGS: AP Spine L1-L4: [BMD (g/cm2): 1.105] [T-Score: -0.8] [Z-Score: 0.1] [BMD Previous: NA] [BMD % Change: NA] LT Hip Neck: [BMD (g/cm2): 0.710] [T-Score: -2.4] [Z-Score: -1.3] LT Hip Total: [BMD (g/cm2):0.721] [T-Score:-2.3] [Z-Score: -1.5] [BMD Previous: NA] [BMD % Change: NA] RT Hip Neck: [BMD (g/cm2):0.752] [T-Score:-2.1] [Z-Score:-1.0] RT Hip Total: [BMD (g/cm2):0.734] [T-score:-2.2] [Z-Score:-1.4] [BMD Previous:NA] [BMD % Change:NA] *Indicates significant change from prior examination based on 95% confidence level. World Health Organization criteria for BMD interpretation classify patients as Normal (T-score at or above -1.0), Osteopenic (T-score between -1.0 and -2.5) or Osteoporotic (T-score at or below -2.5). LIMITATIONS AND MODIFICATION: None. FRACTURE RISK (FRAX SCORE): The ten year probability of (%): Major Osteoporotic Fracture: [20.4] Hip Fracture: [4.2] IMPRESSION: 1. Osteopenia (Low bone mass). 2. Baseline examination. 3. See below National Osteoporosis Foundation guidelines on when to potentially initiate pharmacologic therapy. Based on the National Osteoporosis Foundation Guidelines, pharmacologic treatment should be initiated in any of the following, unless clinical conditions suggest otherwise: * Any patient with prior fragility fracture of the hip or vertebrae. A spine fracture indicates 5X risk for subsequent spine fracture and 2X risk for subsequent hip fracture. * Osteoporosis (T-score <-2.5). * Postmenopausal women and men age 50 and older with low bone mass/osteopenia (T-score between -1.0 and -2.5) by DXA and 10-year major osteoporotic fracture greater than 20% or a 10-year probability of hip fracture greater than 3%. These fracture risks are supplied above in the FRAX score, if applicable. * Clinician judgement and/or patient preferences may indicate treatment for people with 10-year fracture probabilities above or below these levels. Dictated by: Dictated on workstation # [id number]
--- NOTE | 2021-06-18 11:48 | Diagnostic Imaging Report ---
INDICATION: PROCEDURE: Ultrasound abdomen complete. TECHNIQUE: Multiple real-time grayscale images were obtained of the abdomen in various projections. History of liver transplant Its compared with abdominal ultrasound 01/11/2021. Findings: There is no liver mass. No pathological dilatation of the bile ducts. The main left and right hepatic veins patent and showed normal directional flow. The intra and extra hepatic portal veins are patent and showed normal hepatopetal directional flow. No ascites or perihepatic fluid collection. The spleen is surgically absent. The pancreas largely obscured by gas. The aorta and IVC largely obscured by gas. The kidneys normal in size, cortical thickness and echotexture. There is no hydroureteronephrosis. Right kidney 9.6, left 9.2 cm. IMPRESSION: Hepatic transplant showed no vascular abnormality. There is no ascites. No detectable liver mass or biliary dilatation. Dictated by: Dictated on workstation # [id number]
== END ==
LOC: RAD 09:30
PROVIDERS: ATTEND Nurse Practitioner Family
DX: Z13.820 Encounter for screening for osteoporosis (principal); Z00.00 Encounter for general adult medical examination without abnormal findings; K75.81 Nonalcoholic steatohepatitis (NASH); D84.9 Immunodeficiency, unspecified; N95.8 Other specified menopausal and perimenopausal disorders; M85.80 Other specified disorders of bone density and structure, unspecified site; Z94.4 Liver transplant status; Z79.899 Other long term (current) drug therapy; Z78.0 Asymptomatic menopausal state
CPT/HCPCS: 76700; 77080

== ENCOUNTER 2022-01-29 20:51 | Emergency (ER) | payer MEDICARE, MEDICAID ==
[~2022-01-29] VITALS: Ht 170 cm; Wt 77.1 kg
[~2022-01-29 20:51] MED LIST changes: +MOME17SP11 NS; -MOME17SP9 NS
[2022-01-29 21:25] VITALS: BP 129/73
[2022-01-29] MEDS ORDERED: NS IV 1000 ML 1,000 ML IV STA (21:31)
--- NOTE | 2022-01-29 21:36 | ED Cough/URI ---
General Chief Complaint: Fever-Adult/Adol Stated Complaint: DIARRHEA, FEVER Nursing Triage Note: Pt arrive per POV w/ c/o fever and diarrhea. Pt states that diarrhea started yesterday. Source: patient Exam Limitations: no limitations (SACHI JIMENEZ) History of Present Illness Date Seen by Provider: Jan 29, 2022 Time Seen by Provider: 21:35 Initial Comments Patient is a 67-year-old female who presents ED with diarrhea, mid abdominal discomfort. Symptoms started yesterday. She reports 4 episodes of watery diarrhea yesterday with 6 episodes today. Denies of any blood in stool, mucousy stool. Patient reports nausea without vomiting. She reports a tight band sensation to her mid abdomen. She reports a mild scratchy throat. She denies cough, chest pain, shortness of breath, ear pain, headache, dizziness. No urinary symptoms. She states she was on antibiotic few weeks ago for potential UTI. No recent travels. No change in food. History of gastric sleeve, liver transplant, splenectomy. She denies a daily antibiotic use. She reports a tem perature as high as 100.8 at home. Patient took Excedrin Migraine. (SACHI JIMENEZ) Allergies and Home Medications Allergies Coded Allergies: Sulfa (Sulfonamide Antibiotics) (Verified Allergy, Unknown, 06/14/09) codeine (Verified Allergy, Unknown, 06/14/09) diazepam (Verified Allergy, Unknown, 06/14/09) Uncoded Allergies: TAPE (Allergy, Unknown, 06/14/09) Patient Home Medication List Home Medication List Reviewed: Yes (FELIPA JAQUEZ MD) Allopurinol (Allopurinol) 100 Mg Tablet, 100 MG PO BID, (Reported) Entered as Reported by: DEVANG NEWTON on 04/06/19901 Aspirin (Aspirin EC) 81 Mg Tablet.dr, 81 MG PO 1500, (Reported) Entered as Reported by: DEVANG NEWTON on 04/06/19908 Biotin (Biotin) 1,000 Mcg Tablet, 1,000 MCG PO HS, (Reported) Entered as Reported by: DEVANG NEWTON on 04/06/19908 Calcium Carbonate/Vitamin D3 (Caltrate 600 + D Tablet) 1 Each Tablet, 1 TAB PO DAILY, (Reported) Entered as Reported by: DEVANG NEWTON on 04/06/19915 Carvedilol (Carvedilol) 6.25 Mg Tablet, 6.25 MG PO BID, (Reported) Entered as Reported by: DEVANG NEWTON on 04/06/19901 Cholecalciferol (Vitamin D3) (Vitamin D3) 1,000 Unit Capsule, 2,000 UNIT PO 1100, (Reported) Entered as Reported by: DEVANG NEWTON on 04/06/19908 Furosemide (Furosemide) 40 Mg Tablet, 40 MG PO BID, (Reported) Entered as Reported by: DEVANG NEWTON on 04/06/19901 Hydroxyzine Pamoate (Hydroxyzine Pamoate) 50 Mg Capsule, 50 MG PO HS, (Reported) Entered as Reported by: DEVANG NEWTON on 04/06/19901 Insulin Degludec (Tresiba Flextouch U-100) 100 Unit/1 Ml Insuln.pen, 36 UNITS SC DAILY, (Reported) Entered as Reported by: DEVANG NEWTON on 04/06/19901 Liraglutide (Victoza 3-Stuart) 0.6 Mg/0.1 Ml Pen.injctr, 1.8 MG SC DAILY, (Reported) Entered as Reported by: DEVANG NEWTON on 04/06/19901 Magnesium Oxide (Magnesium) 400 Mg Tablet, 400 MG PO BID, (Reported) Entered as Reported by: DEVANG NEWTON on 04/06/19908 Melatonin (Melatonin) 10 Mg Tablet, 10 MG PO HS, (Reported) Entered as Reported by: DEVANG NEWTON on 04/06/19908 Mometasone Furoate (Mometasone Furoate) 17 Gm Pearson.pump, 2 SPRAYS NS DAILY PRN for CONGESTION, (Reported) Entered as Reported by: DEVANG NEWTON on 04/06/19901 Multivit-Min/FA/Lycopene/Lut (Centrum Silver Tablet) 1 Each Tablet, 1 TAB PO DAILY, (Reported) Entered as Reported by: DEVANG NEWTON on 04/06/19908 Mycophenolate Mofetil (Mycophenolate Mofetil) 250 Mg Capsule, 250 MG PO BID, (Reported) Entered as Reported by: DEVANG NEWTON on 04/06/19901 Niacinamide (Niacin) 500 Mg Tablet, 1,000 MG PO HS, (Reported) Entered as Reported by: DEVANG NEWTON on 04/06/19908 Ondansetron (Ondansetron Odt) 4 Mg Tab.rapdis, 4 MG PO Q4H Prescribed by: DENISHA MASCORRO on 01/29/22 9601 Potassium Chloride (Potassium Chloride) 10 Meq Tablet.er, 10 MEQ PO BID, (Reported) Entered as Reported by: DEVANG NEWTON on 04/06/19 0832 Red Yeast Rice (Red Yeast Rice) 600 Mg Capsule, 1,200 MG PO HS, (Reported) Entered as Reported by: DEVANG NEWTON on 04/06/19 09 Tacrolimus (Tacrolimus) 0.5 Mg Capsule, 0.5 MG PO BID, (Reported) Entered as Reported by: DEVANG NEWTON on 04/06/19901 Trazodone HCl (Trazodone HCl) 100 Mg Tablet, 100 MG PO HS PRN for SLEEP, (Reported) Entered as Reported by: DEVANG NEWTON on 04/06/19901 Review of Systems Review of Systems Constitutional: chills, fever, malaise, weakness EENTM: throat pain; No ear discharge, No blurred vision, No double vision, No dental problems, No hoarseness, No mouth pain, No mouth swelling Respiratory: No cough, No dyspnea on exertion, No orthopnea, No short of breath Gastrointestinal: abdominal pain; No diarrhea; nausea; No vomiting Musculoskeletal: No back pain, No gout, No joint pain Skin: No change in color, No change in hair/nails (SACHI JIMENEZ) All Other Systems Reviewed Negative Unless Noted: Yes (SACHI JIMENEZ) Past Cxepcay-Bvpxzf-Kebqmd Hx Immunizations Up To Date Tetanus Booster (TDap): Unknown PED Vaccines UTD: Yes (SACHI JIMENEZ) Seasonal Allergies Seasonal Allergies: No (SACHI JIMENEZ) Past Medical History Surgeries: Yes Abdominal, Gallbladder, Hysterectomy, Liver Transplant, Tonsillectomy Respiratory: Yes (RIGHT LUNG "SCRAPED" AND RIB REMOVED 1998) Cardiac: Yes (STENT X 1; "ANEURYSM BEHIND SPLEEN" ) Chronic Edema/Swelling, Coronary Artery Disease, High Cholesterol, Hypertension Neurological: No [employer]ALL [employer]PET INST[employer]ER History: Hysterectomy Genitourinary: No Gastrointestinal: Yes Liver Disease/Jaundice, Hepatitis Musculoskeletal: No Endocrine: Yes Diabetes, Insulin dep HEENT: No Tonsilitis Cancer: No Psychosocial: Yes (HX OF POLYSUBSTANCE ABUSE) Integumentary: No Blood Disorders: No (SACHI JIMENEZ) Family Medical History Cirrhosis of liver 19 MOTHER, , Onset:60 years & older Diabetes mellitus 19 MOTHER, , Onset:Unknown FH: CHF (congestive heart failure) 19 FATHER, , Onset:60 years & older FH: CVA (cerebrovascular accident) 19 MOTHER, , Onset:60 years & older FH: cerebral palsy G8 BROTHER, , Onset:Childhood FH: ovarian cancer G8 SISTER, , Onset:40's - 50 Myocardial infarction 19 MOTHER, , Onset:60 years & older Stillbirth G8 BROTHER, , Onset:[place] Physical Exam Vital Signs - First Documented 01/29/22 21:25 Temp 36.0 Pulse 75 Resp 20 B/P (MAP) 129/73 (91) Pulse Ox 94 O2 Delivery Nasal Cannula (FELIPA JAQUEZ MD) Capillary Refill : (SACHI JIMENEZ) Height: 5'7.00" Weight: 238lbs. 0.0oz. [id number]; 26.00 BMI Method:Stated General Appearance: WD/WN, no apparent distress Eyes: Bilateral Eye Normal Inspection, Bilateral Eye PERRL, Bilateral Eye EOMI HEENT: PERRL/EOMI, normal ENT inspection, TMs normal, pharynx normal Neck: non-tender, full range of motion, supple, normal inspection Respiratory: chest non-tender, lungs clear, normal breath sounds, no respiratory distress, no accessory muscle use Cardiovascular: regular rate, rhythm, no edema, no gallop, no JVD Gastrointestinal: normal bowel sounds, non tender, soft, no organomegaly Extremities: normal range of motion, normal inspection, no pedal edema, no calf tenderness Neurologic/Psychiatric: adult educator II-XII nml as tested, no motor/sensory deficits, alert, normal mood/affect, oriented x 3 (SACHI JIMENEZ) Progress/Results/Core Measures Suspected Sepsis SIRS Temperature: Pulse: 75 Respiratory Rate: 20 Laboratory Tests 01/29/22 22:00: White Blood Count 12.2H Blood Pressure 129 /73 Mean: 91 Laboratory Tests 01/29/22 22:00: Creatinine 1.03, Platelet Count 392, Total Bilirubin 0.5 (SACHI JIMENEZ) Results/Orders Lab Results Laboratory Tests Test 01/29/22 21:44 01/29/22 21:45 01/29/22 22:00 Range/Units Urine Color DARK YELLOW Urine Clarity CLEAR Urine pH 5.5 5-9 Urine Specific Swe[place]er 1.025 H 1.016-1.022 Urine Protein NEGATIVE NEGATIVE Urine Glucose (UA) NEGATIVE NEGATIVE Urine Ketones TRACE H NEGATIVE Urine Nitrite NEGATIVE NEGATIVE Urine Bilirubin NEGATIVE NEGATIVE Urine Urobilinogen 0.2 < = 1.0 MG/DL Urine Leukocyte Esterase NEGATIVE NEGATIVE Urine RBC (Auto) NEGATIVE NEGATIVE Urine RBC NONE /HPF Urine WBC NONE /HPF Urine Crystals PRESENT H /LPF Urine Amorphous Sediment RARE AMIE URATES H /LPF Urine Bacteria NEGATIVE /HPF Urine Casts PRESENT /LPF Urine Hyaline Casts 2-5 H /LPF Urine Mucus NEGATIVE /LPF Urine Culture Indicated NO Influenza Type A (RT-PCR) Not Detected Not Detecte Influenza Type B (RT-PCR) Not Detected Not Detecte SARS-CoV-2 RNA (RT-PCR) Not Detected Not Detecte White Blood Count 12.2 H 4.3-11.0 10^3/uL Red Blood Count 4.94 3.80-5.11 10^6/uL Hemoglobin 14.4 11.5-16.0 g/dL Hematocrit 44 35-52 % Mean Corpuscular Volume 88 80-99 fL Mean Corpuscular Hemoglobin 29 25-34 pg Mean Corpuscular Hemoglobin Concent 33 32-36 g/dL Red Cell Distribution Width 14.3 10.0-14.5 % Platelet Count 392 130-400 10^3/uL Mean Platelet Volume 11.1 9.0-12.2 fL Immature Granulocyte % (Auto) 0 % Neutrophils (%) (Auto) 41 L 42-75 % Lymphocytes (%) (Auto) 41 12-44 % Monocytes (%) (Auto) 13 H 0-12 % Eosinophils (%) (Auto) 5 0-10 % Basophils (%) (Auto) 1 0-10 % Neutrophils # (Auto) 5.0 1.8-7.8 10^3/uL Lymphocytes # (Auto) 5.0 H 1.0-4.0 10^3/uL Monocytes # (Auto) 1.6 H 0.0-1.0 10^3/uL Eosinophils # (Auto) 0.6 H 0.0-0.3 10^3/uL Basophils # (Auto) 0.1 0.0-0.1 10^3/uL Immature Granulocyte # (Auto) 0.0 0.0-0.1 10^3/uL Sodium Level 143 135-145 MMOL/L Potassium Level 4.1 3.6-5.0 MMOL/L Chloride Level 108 H 98-107 MMOL/L Carbon Dioxide Level 21 21-32 MMOL/L Anion Gap 14 5-14 MMOL/L Blood Urea Nitrogen 21 H 7-18 MG/DL Creatinine 1.03 0.60-1.30 MG/DL Estimat Glomerular Filtration Rate 59 BUN/Creatinine Ratio 20 Glucose Level 134 H 70-105 MG/DL Calcium Level 9.7 8.5-10.1 MG/DL Corrected Calcium 9.8 8.5-10.1 MG/DL Total Bilirubin 0.5 0.1-1.0 MG/DL Aspartate Amino Transf (AST/SGOT) 79 H 5-34 U/L Alanine Aminotransferase (ALT/SGPT) 52 0-55 U/L Alkaline Phosphatase 132 40-136 U/L C-Reactive Protein High Sensitivity 0.42 0.00-0.50 MG/DL Total Protein 7.2 6.4-8.2 GM/DL Albumin 3.9 3.2-4.5 GM/DL Lipase 27 8-78 U/L (FELIPA JAQUEZ MD) Medications Given in ED Current Medications Medications Dose Ordered Sig/Brett Route Start Time Stop Time Status Last Admin Dose Admin Ondansetron HCl 4 mg ONCE ONCE IVP 01/29/22 21:45 01/29/22 21:46 DC 01/29/22 22:10 4 MG (FELIPA JAQUEZ MD) Vital Signs/I&O 01/29/22 21:25 Temp 36.0 Pulse 75 Resp 20 B/P (MAP) 129/73 (91) Pulse Ox 94 O2 Delivery Nasal Cannula (FELIPA JAQUEZ MD) Vital Signs/I&O Capillary Refill : (SACHI JIMENEZ) Blood Pressure Mean: 91 Departure Communication (Admissions) Patient on arrival had no acute distress. Vital signs stable. Afebrile. Lab work showed slightly elevated white blood count 12.2. Chemistry otherwise unremarkable. Urinalysis without evident infection. Mildly dehydrated. Was given a liter of fluid and Zofran. Patient without significant abdominal tenderness. She denies any dark tarry stool bloody stool. No recent antibiotic use over the past week. She states she did take antibiotic 2 to 3 weeks ago for UTI. Unclear the name of the antibiotic. Patient CT abdomen pelvis with normal appendix. No urinary tract calculi. Hyperdense material within the lumen of the cecum could be due to ingested material versus blood products. Not necessarily concern for GI bleed as she denies of any dark tarry stool. Hemoglobin is normal. She had no episodes of diarrhea here to take a stool sample. Recommend probiotics at home. Discussed conservative treatment at this time. Covid influenza negative. Likely viral. She has no history of Crohn's, ulcerative colitis. May warrant further evaluation with stool cultures if symptoms worsen. If mucousy stool, worsening abdominal pain, dark tarry stool to return back to ED for further evaluation. Follow-up your PCP in 2 to 3 days for evaluation. (SACHI JIMENEZ) Impression Primary Impression: Diarrhea Disposition: 01 HOME, SELF-CARE Condition: Stable Departure-Patient Inst. Decision time for Depature: 22:57 (SACHI JIMENEZ) Referrals: DARIUSZ YORK DO (PCP/Family) Primary Care Physician Patient Instructions: Diarrhea, Adult ED Scripts Ondansetron (Ondansetron Odt) 4 Mg Tab.rapdis 4 MG PO Q4H, #8 TAB Prov: SACHI JIMENEZ 01/29/22 ATTENDING PHYSICIAN NOTE: I was physically present as attending physician in the emergency department during the care of this patient, but I was not directly involved in the decision making or delivery of care for this patient. (FELIPA JAQUEZ MD) SACHI JIMENEZ Jan 29, 2022 21:36 FELIPA JAQUEZ MD Jan 30, 2022 06:16
[2022-01-29] MEDS ORDERED: ONDANSETRON 4 MG/2 ML (SDV) Z0FRAN IVP ONE (21:45)
[2022-01-29 21:54] LABS: BILIRUBIN,URINE NEGATIVE (NEGATIVE); CLARITY,URINE CLEAR; COLOR,URINE DARK YELLOW; GLUCOSE, URINE (UA) NEGATIVE (NEGATIVE); KETONES,URINE TRACE (NEGATIVE); LEUKOCYTE ESTERASE ,URINE NEGATIVE (NEGATIVE); NITRITE,URINE NEGATIVE (NEGATIVE); PH,URINE 5.5 (5-9); PROTEIN,URINE NEGATIVE (NEGATIVE)
[2022-01-29 22:08] LABS: AMORPHOUS SEDIMENT,UR RARE AMOR URATES /LPF; BACTERIA,URINE NEGATIVE /HPF
--- NOTE | 2022-01-29 22:14 | Diagnostic Imaging Report ---
CT abdomen/pelvis w/o TECHNIQUE: Unenhanced CT imaging of the abdomen and pelvis was performed. 2D reformats are created and submitted for interpretation. Automatic exposure controls were utilized to optimize patient dose. INDICATION: Right lower quadrant pain. COMPARISON: None available. FINDINGS: Evaluation of the abdominal viscera is mildly limited without contrast. Lower chest: The lung bases are clear. No pericardial or pleural effusion. Peritoneum: No free intraperitoneal air or fluid. Liver and biliary system: Unenhanced liver is normal. Gallbladder is likely surgically absent. No biliary duct dilatation. Spleen and Pancreas: Splenectomy. Unenhanced pancreas is grossly normal. Adrenals: Normal. tract: No renal or ureteral calculi. No obstructive uropathy. Urinary bladder is decompressed. Hysterectomy. No adnexal mass. GI tract: Status post gastric sleeve reduction surgery. No bowel obstruction. No pericolonic inflammatory changes. Normal appendix. Hyperdense material within the lumen of the cecum. Fluid is present throughout the colon and is indicative of a diarrheal state. Vasculature and Lymph nodes: Normal caliber aorta. No abdominal or pelvic lymphadenopathy. Musculoskeletal: No concerning osseous lesion. IMPRESSION: 1. Normal appendix. 2. No urinary tract calculi or obstructive uropathy. 3. Hyperdense material within the lumen of the cecum could be due to ingested material versus blood products. If there is concern for gastrointestinal bleed, then nuclear medicine tagged red blood cell scan could be performed for further assessment. Dictated by: Dictated on workstation # [id number]
[2022-01-29 22:22] LABS: BASOPHILS # (AUTO) 0.1 10^3/uL (0.0-0.1); BASOPHILS % (AUTO) 1 % (0-10); EOSINOPHILS # (AUTO) 0.6 10^3/uL (0.0-0.3); EOSINOPHILS % (AUTO) 5 % (0-10); HEMATOCRIT 44 % (35-52); HEMOGLOBIN 14.4 g/dL (11.5-16.0); LYMPHOCYTES % (AUTO) 41 % (12-44); MEAN CORPUSCULAR HEMOGLOBIN 29 pg (25-34); MEAN CORPUSCULAR HGB CONC 33 g/dL (32-36); MEAN CORPUSCULAR VOLUME 88 fL (80-99); MEAN PLATELET VOLUME 11.1 fL (9.0-12.2); MONOCYTES # (AUTO) 1.6 10^3/uL (0.0-1.0); MONOCYTES % (AUTO) 13 % (0-12); NEUTROPHILS % (AUTO) 41 % (42-75); PLATELET COUNT 392 10^3/uL (130-400); WHITE BLOOD COUNT 12.2 10^3/uL (4.3-11.0)
[2022-01-29 22:33] LABS: ALBUMIN 3.9 GM/DL (3.2-4.5); POTASSIUM 4.1 MMOL/L (3.6-5.0)
[2022-01-29 22:34] LABS: CALCIUM 9.7 MG/DL (8.5-10.1)
[2022-01-29 22:35] LABS: TOTAL PROTEIN 7.2 GM/DL (6.4-8.2)
[2022-01-29 22:37] LABS: BILIRUBIN,TOTAL 0.5 MG/DL (0.1-1.0)
[2022-01-29 22:39] LABS: CREATININE SERUM 1.03 MG/DL (0.60-1.30)
[2022-01-29] MEDS ORDERED: ONDA4TAB11 PO (22:58)
== END 2022-01-29 23:12 | disposition home or self-care (01) ==
LOC: EDUNIT# 20:51 → ER 20:52
DX: R19.7 Diarrhea, unspecified (principal); Z20.822 Contact with and (suspected) exposure to COVID-19
CPT/HCPCS: 36415; 74176; 80053; 81000; 83690; 85025; 86141; 87636

== ENCOUNTER → 2022-02-17 | Outpatient (CLI) | payer MEDICARE, MEDICAID ==
[~2022-02-17] MED LIST changes: +ONDA4TAB11 PO
[2022-02-17 10:56] LABS: BASOPHILS # (AUTO) 0.1 10^3/uL (0.0-0.1); BASOPHILS % (AUTO) 1 % (0-10); EOSINOPHILS # (AUTO) 0.6 10^3/uL (0.0-0.3); EOSINOPHILS % (AUTO) 5 % (0-10); HEMATOCRIT 41 % (35-52); HEMOGLOBIN 13.8 g/dL (11.5-16.0); LYMPHOCYTES % (AUTO) 54 % (12-44); MEAN CORPUSCULAR HEMOGLOBIN 29 pg (25-34); MEAN CORPUSCULAR HGB CONC 33 g/dL (32-36); MEAN CORPUSCULAR VOLUME 88 fL (80-99); MEAN PLATELET VOLUME 10.5 fL (9.0-12.2); MONOCYTES # (AUTO) 1.1 X 10^3 (0.0-1.0); MONOCYTES % (AUTO) 10 % (0-12); NEUTROPHILS # (AUTO) 3.3 X 10^3 (1.8-7.8); NEUTROPHILS % (AUTO) 30 % (42-75); PLATELET COUNT 402 10^3/uL (130-400)
[2022-02-17 11:12] LABS: ALBUMIN 3.7 GM/DL (3.2-4.5); BILIRUBIN,TOTAL 0.8 MG/DL (0.1-1.0); CALCIUM 9.9 MG/DL (8.5-10.1); CREATININE SERUM 0.93 MG/DL (0.60-1.30); POTASSIUM 3.7 MMOL/L (3.6-5.0); TOTAL PROTEIN 6.9 GM/DL (6.4-8.2)
[2022-02-18 01:53] LABS: FK506 7.3 ng/mL
== END ==
LOC: LAB 10:18
PROVIDERS: ATTEND Nurse Practitioner Family
DX: Z94.4 Liver transplant status (principal); Z79.899 Other long term (current) drug therapy
CPT/HCPCS: 36415; 80053; 80061; 80197; 82306; 82570; 84156; 85025

== ENCOUNTER → 2022-04-14 | Outpatient (CLI) | payer MEDICARE, MEDICAID ==
--- NOTE | 2022-04-14 16:06 | Diagnostic Imaging Report ---
INDICATION: Routine screening. COMPARISON: 08/16/2020 and 09/17/2017. TECHNIQUE: 2D and 3D bilateral screening mammography was performed with CAD. FINDINGS: Both breasts are heterogeneously dense, limiting the sensitivity of mammography. The parenchymal pattern is stable. No mass or malignant-appearing microcalcifications are seen. The axillae are unremarkable. There are scattered benign calcifications. IMPRESSION: No mammographic features suspicious for malignancy are identified. ACR BI-RADS Category 2: Benign findings. Result letter will be mailed to the patient. Note: At least 10% of breast cancer is not imaged by mammography. Dictated by: Dictated on workstation # [id number]
== END ==
LOC: RAD 10:15
PROVIDERS: ATTEND Internal Medicine
DX: Z12.31 Encounter for screening mammogram for malignant neoplasm of breast (principal)
CPT/HCPCS: 77063; 77067

== ENCOUNTER 2022-05-20 15:04 | Outpatient (RCR) | payer MEDICARE, MEDICAID | END 2022-05-22 11:18 | disposition home or self-care (01) | PROVIDERS: ATTEND Internal Medicine | DX: S76.812A Strain of other specified muscles, fascia and tendons at thigh level, left thigh, initial encounter (principal); E11.9 Type 2 diabetes mellitus without complications; I10 Essential (primary) hypertension ==

== ENCOUNTER → 2022-05-28 | Outpatient (CLI) | payer MEDICARE, MEDICAID ==
[2022-05-28 12:06] LABS: BASOPHILS # (AUTO) 0.2 10^3/uL (0.0-0.1); BASOPHILS % (AUTO) 2 % (0-10); EOSINOPHILS # (AUTO) 0.5 10^3/uL (0.0-0.3); EOSINOPHILS % (AUTO) 5 % (0-10); HEMATOCRIT 44 % (35-52); HEMOGLOBIN 14.4 g/dL (11.5-16.0); LYMPHOCYTES # (AUTO) 4.8 10^3/uL (1.0-4.0); LYMPHOCYTES % (AUTO) 48 % (12-44); MEAN CORPUSCULAR HEMOGLOBIN 29 pg (25-34); MEAN CORPUSCULAR HGB CONC 33 g/dL (32-36); MEAN CORPUSCULAR VOLUME 90 fL (80-99); MEAN PLATELET VOLUME 10.7 fL (9.0-12.2); MONOCYTES % (AUTO) 10 % (0-12); NEUTROPHILS # (AUTO) 3.5 10^3/uL (1.8-7.8); NEUTROPHILS % (AUTO) 35 % (42-75); PLATELET COUNT 394 10^3/uL (130-400); WHITE BLOOD COUNT 9.9 10^3/uL (4.3-11.0)
[2022-05-28 12:14] LABS: ALBUMIN 3.9 GM/DL (3.2-4.5); POTASSIUM 3.8 MMOL/L (3.6-5.0)
[2022-05-28 12:15] LABS: CALCIUM 9.8 MG/DL (8.5-10.1)
[2022-05-28 12:16] LABS: TOTAL PROTEIN 7.1 GM/DL (6.4-8.2)
[2022-05-28 12:18] LABS: BILIRUBIN,TOTAL 0.8 MG/DL (0.1-1.0)
[2022-05-28 12:20] LABS: CREATININE SERUM 0.91 MG/DL (0.60-1.30)
== END ==
LOC: LAB 11:28
PROVIDERS: ATTEND Nurse Practitioner Family
DX: Z79.899 Other long term (current) drug therapy (principal); Z94.4 Liver transplant status; E11.9 Type 2 diabetes mellitus without complications
CPT/HCPCS: 36415; 80053; 80061; 80197; 82306; 82570; 84156; 85025

== ENCOUNTER 2023-03-30 14:04 | Outpatient (RCR) | payer MEDICARE, MEDICAID ==
[2023-03-30 14:19] LABS: BASOPHILS # (AUTO) 0.2 10^3/uL (0.0-0.1); BASOPHILS % (AUTO) 2 % (0-10); EOSINOPHILS # (AUTO) 0.5 10^3/uL (0.0-0.3); EOSINOPHILS % (AUTO) 5 % (0-10); HEMATOCRIT 44 % (35-52); HEMOGLOBIN 14.6 g/dL (11.5-16.0); LYMPHOCYTES # (AUTO) 4.1 10^3/uL (1.0-4.0); LYMPHOCYTES % (AUTO) 45 % (12-44); MEAN CORPUSCULAR HEMOGLOBIN 29 pg (25-34); MEAN CORPUSCULAR HGB CONC 33 g/dL (32-36); MEAN CORPUSCULAR VOLUME 88 fL (80-99); MEAN PLATELET VOLUME 10.3 fL (9.0-12.2); MONOCYTES % (AUTO) 11 % (0-12); NEUTROPHILS # (AUTO) 3.4 10^3/uL (1.8-7.8); NEUTROPHILS % (AUTO) 37 % (42-75); PLATELET COUNT 370 10^3/uL (130-400); WHITE BLOOD COUNT 9.2 10^3/uL (4.3-11.0)
[2023-03-30 14:40] LABS: BILIRUBIN,TOTAL 0.8 MG/DL (0.1-1.0); CALCIUM 9.6 MG/DL (8.5-10.1); CREATININE SERUM 0.89 MG/DL (0.60-1.30); POTASSIUM 3.8 MMOL/L (3.6-5.0); TOTAL PROTEIN 7.4 GM/DL (6.4-8.2)
[2023-03-31 05:05] LABS: FK506 3.3 ng/mL
== END 2023-04-29 | disposition home or self-care (01) ==
LOC: LAB 14:04
PROVIDERS: ATTEND Registered Nurse
DX: Z94.4 Liver transplant status (principal); Z79.899 Other long term (current) drug therapy
CPT/HCPCS: 36415; 80053; 80197; 82306; 82570; 82977; 84156; 85025

== ENCOUNTER 2023-05-08 14:39 | Emergency (ER) | payer MEDICARE, MEDICAID ==
[~2023-05-08] VITALS: Ht 170 cm; Wt 90.0 kg
--- NOTE | 2023-05-08 15:27 | ED Hip Pain/Injury ---
General Chief Complaint: Hip/Pelvic Problems Stated Complaint: LT HIP PAIN | POST COLONOSCOPY PAIN Nursing Triage Note: PT AMB TO RM 7 PT CO OF L HIP PAIN. PT STATES HAS L HIP PAIN FOR A WEEK FOLLOWING COLONSCOPY. STATES IS IN L HIP, GOES AROUND L LEG, AND SHOOTS DOWN L LEG. DENIES INC OF BOWEL OR BLADDER. RATES PAIN 06/08 Source: patient Exam Limitations: no limitations History of Present Illness Date Seen by Provider: May 08, 2023 Time Seen by Provider: 15:02 Initial Comments This 68 yo woman presents to the ER by private vehicle with complaint of left hip pain, especially with walking x 1 wk. Pain radiates down the anterior left thigh. She denies prior problems with this hip, trauma, or strenuous activity. Pain stared after colonoscopy. She denies leg weakness, bowel or bladder disfunction, groin numbness, or other neurologic deficits. She has dried Tylenol and Ibuprofen without relief. She is not supposed to take NSAIDS due to her chronic health conditions including history of transplant, DM, etc. Allergies and Home Medications Allergies Coded Allergies: Sulfa (Sulfonamide Antibiotics) (Verified Allergy, Unknown, 06/14/09) codeine (Verified Allergy, Unknown, 06/14/09) diazepam (Verified Allergy, Unknown, 06/14/09) Uncoded Allergies: TAPE (Allergy, Unknown, 06/14/09) Patient Home Medication List Home Medication List Reviewed: Yes Allopurinol (Allopurinol) 100 Mg Tablet, 100 MG PO BID, (Reported) Entered as Reported by: DEVANG NEWTON on 04/06/19901 Aspirin (Aspirin EC) 81 Mg Tablet.dr, 81 MG PO 1500, (Reported) Entered as Reported by: DEVANG NEWTON on 04/06/19908 Biotin (Biotin) 1,000 Mcg Tablet, 1,000 MCG PO HS, (Reported) Entered as Reported by: DEVANG NEWTON on 04/06/19908 Calcium Carbonate/Vitamin D3 (Caltrate 600 + D Tablet) 1 Each Tablet, 1 TAB PO DAILY, (Reported) Entered as Reported by: DEVANG NEWTON on 04/06/19915 Carvedilol (Carvedilol) 6.25 Mg Tablet, 6.25 MG PO BID, (Reported) Entered as Reported by: DEVANG NEWTON on 04/06/19901 Cholecalciferol (Vitamin D3) (Vitamin D3) 1,000 Unit Capsule, 2,000 UNIT PO 1100, (Reported) Entered as Reported by: DEVANG NEWTON on 04/06/19908 Furosemide (Furosemide) 40 Mg Tablet, 40 MG PO BID, (Reported) Entered as Reported by: DEVANG NEWTON on 04/06/19901 Hydroxyzine Pamoate (Hydroxyzine Pamoate) 50 Mg Capsule, 50 MG PO HS, (Reported) Entered as Reported by: DEVANG NEWTON on 04/06/19901 Insulin Degludec (Tresiba Flextouch U-100) 100 Unit/1 Ml Insuln.pen, 36 UNITS SC DAILY, (Reported) Entered as Reported by: DEVANG NEWTON on 04/06/19901 Liraglutide (Victoza 3-Stuart) 0.6 Mg/0.1 Ml Pen.injctr, 1.8 MG SC DAILY, (Reported) Entered as Reported by: DEVANG NEWTON on 04/06/19901 Magnesium Oxide (Magnesium) 400 Mg Tablet, 400 MG PO BID, (Reported) Entered as Reported by: DEVANG NEWTON on 04/06/19908 Melatonin (Melatonin) 10 Mg Tablet, 10 MG PO HS, (Reported) Entered as Reported by: DEVANG NEWTON on 04/06/19908 Mometasone Furoate (Mometasone Furoate) 17 Gm [place].pump, 2 SPRAYS NS DAILY PRN for CONGESTION, (Reported) Entered as Reported by: DEVANG NEWTON on 04/06/19901 Multivit-Min/FA/Lycopene/Lut (Centrum Silver Tablet) 1 Each Tablet, 1 TAB PO DAILY, (Reported) Entered as Reported by: DEVANG NEWTON on 04/06/19908 Mycophenolate Mofetil (Mycophenolate Mofetil) 250 Mg Capsule, 250 MG PO BID, (Reported) Entered as Reported by: DEVANG NEWTON on 04/06/19901 Niacinamide (Niacin) 500 Mg Tablet, 1,000 MG PO HS, (Reported) Entered as Reported by: DEVANG NEWTON on 04/06/19908 Ondansetron (Ondansetron Odt) 4 Mg Tab.rapdis, 4 MG PO Q4H Prescribed by: DENISHA MASCORRO on 01/29/22 2258 Oxycodone HCl/Acetaminophen (Percocet 5-325 mg Tablet) 1 Each Tablet, 0.5-1 TAB PO Q4H PRN for PAIN-MODERATE (5-7) Prescribed by: FELIPA MAY on 05/08/23 1529 Potassium Chloride (Potassium Chloride) 10 Meq Tablet.er, 10 MEQ PO BID, (Reported) Entered as Reported by: DEVANG NEWTON on 04/06/19 0832 Prednisone (Prednisone) 20 Mg Tab, 20 MG PO DAILY Prescribed by: FELIPA MAY on 05/08/23 1528 Red Yeast Rice (Red Yeast Rice) 600 Mg Capsule, 1,200 MG PO HS, (Reported) Entered as Reported by: DEVANG NEWTON on 04/06/19 0909 Tacrolimus (Tacrolimus) 0.5 Mg Capsule, 0.5 MG PO BID, (Reported) Entered as Reported by: DEVANG NEWTON on 04/06/19 0902 Trazodone HCl (Trazodone HCl) 100 Mg Tablet, 100 MG PO HS PRN for SLEEP, (Reported) Entered as Reported by: DEVANG NEWTON on 04/06/19 0902 Review of Systems Constitutional: no symptoms reported EENTM: no symptoms reported Respiratory: no symptoms reported Cardiovascular: no symptoms reported Gastrointestinal: no symptoms reported Genitourinary: no symptoms reported : No Musculoskeletal: see HPI Skin: no symptoms reported Psychiatric/Neurological: See HPI Past Kjqkger-Pdbkig-Irykpd Hx Patient Social History Tobacco Use?: No Substance use?: No Alcohol Use?: No Pt feels they are or have been: No Immunizations Up To Date Tetanus Booster (TDap): Unknown PED Vaccines UTD: Yes First/Initial COVID19 Vaccinat: 2020 Second COVID19 Vaccination Андрей: 2020 Third COVID19 Vaccination Date: 2020 Seasonal Allergies Seasonal Allergies: No Past Medical History Surgery/Hospitalization HX: LIVER TRANSPLANT, RECENT COLONSCOPY, R RIB OUT, STENT IN HEART, HYST, CHF, GASTRIC SLEEVE, DM, HTN Surgeries: Yes Abdominal, Gallbladder, Hysterectomy, Liver Transplant, Tonsillectomy Respiratory: Yes (RIGHT LUNG "SCRAPED" AND RIB REMOVED 1998) Cardiac: Yes (STENT X 1; "ANEURYSM BEHIND SPLEEN" ) Chronic Edema/Swelling, Coronary Artery Disease, High Cholesterol, Hypertension 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 Genitourinary: No Gastrointestinal: Yes Liver Disease/Jaundice, Hepatitis Musculoskeletal: No Endocrine: Yes Diabetes, Insulin dep HEENT: No Tonsilitis Cancer: No Psychosocial: Yes (HX OF POLYSUBSTANCE ABUSE) Integumentary: No Blood Disorders: No Family Medical History Cirrhosis of liver 19 MOTHER, , Onset:60 years & older Diabetes mellitus 19 MOTHER, , Onset:Unknown FH: CHF (congestive heart failure) 19 FATHER, , Onset:60 years & older FH: CVA (cerebrovascular accident) 19 MOTHER, , Onset:60 years & older FH: cerebral palsy G8 BROTHER, , Onset:Childhood FH: ovarian cancer G8 SISTER, , Onset:40's - 50 Myocardial infarction 19 MOTHER, , Onset:60 years & older Stillbirth G8 BROTHER, , Onset: Physical Exam Vital Signs Vital Signs - First Documented 05/08/23 14:45 Temp 36.6 Pulse 69 Resp 18 B/P (MAP) 147/70 (95) Pulse Ox 97 Capillary Refill : Less Than 3 Seconds Height, Weight, BMI Height: 5'7.00" Weight: 238lbs. 0.0oz. [id number]; 31.00 BMI Method:Stated General Appearance: No Apparent Distress HEENT: Normal ENT Inspection Neck: Normal Inspection Cardiovascular: Regular Rate, Rhythm, No Edema, No Murmur Respiratory: Lungs Clear, Normal Breath Sounds, No Accessory Muscle Use Gastrointestinal: Non Tender, Soft; No Distended Back: Other (significant TTP over the left SI joint) Extremity: Normal Inspection, Non Tender, No Calf Tenderness, No Pedal Edema, Other (No significant pain with flexion or rotation of the hip. Hip joint and bursa nontender. Strenght, pedal pulse and sensation normal. ) Neurologic/Psychiatric: Alert, Oriented x3, No Motor/Sensory Deficits, Normal Mood/Affect Skin: Normal Color, Warm/Dry Progress/Results/Core Measures Results/Orders Vital Signs/I&O 05/08/23 05/08/23 14:45 15:40 Temp 36.6 36.6 Pulse 69 69 Resp 18 18 B/P (MAP) 147/70 (95) 147/70 Pulse Ox 97 97 Blood Pressure Mean: 95 Progress Progress Note : Progress Note Imaging deem unnecessary. If symptoms persist, MRI of lumbar spine could be considered. Pain management is problematic due to patient stated problems or lack of efficacy of several meds and inability to take NSAIDS. Steroids will be used and patient will need to monitory blood sugars carefully. See discharge instructions for further discussion. Departure Impression Primary Impression: Sacroiliitis Additional Impression: Lumbar radiculopathy, acute Disposition: 01 HOME, SELF-CARE Condition: Stable Departure-Patient Inst. Decision time for Depature: 15:22 Referrals: DARIUSZ YORK DO (PCP/Family) Primary Care Physician Patient Instructions: Sacroiliac Joint Pain ED, Radiculopathy Add. Discharge Instructions: Your pain seems to be a combination of sacroiliitis and radicular pain originating from your lower spine. For mild pain you may take Tylenol (acetaminophen) up to 1000 mg every 6 hours as needed. For more severe pain you may take Percocet as prescribed. Start with 1/2 tablet and increase to 1 tablet if that is not effective. Percocet does contain 325 mg of acetaminophen, so be careful not to exceed more than 1000 mg of acetaminophen in 6 hours. Percocet may cause drowsiness so avoid use when you need to be alert. Do not drive, operate machinery, or make important decisions while on Percocet. Percocet may also cause constipation, so you may wish to use a stool softener such as Colace while on Percocet. Please follow-up with your primary care provider soon as possible. It may be b eneficial to have your primary care provider direct additional therapies such as physical therapy, chiropractics, etc. If you do not have improvement with initial treatments, imaging studies such as x-rays, MRI, etc. may be necessary. You have been prescribed prednisone. This is a steroid. Take prednisone early in the day to help reduce risk of sleep disturbance. Take prednisone with food or milk to avoid risk of stomach upset. Monitor your blood sugars closely while taking prednisone. Adjust your insulin accordingly if you have escalation in your blood sugars. Return to the emergency room if you have worsening symptoms, especially if you develop problems controlling bowel or bladder, true weakness of your leg, escalating pain despite treatment, or numbness in the groin. All discharge instructions reviewed with patient and/or family. Voiced understanding. Scripts Prednisone (Prednisone) 20 Mg Tab 20 MG PO DAILY, #4 TAB 0 Refills Prov: FELIPA JAQUEZ MD 05/08/23 Oxycodone HCl/Acetaminophen (Percocet 5-325 mg Tablet) 1 Each Tablet 0.5-1 TAB PO Q4H PRN for PAIN-MODERATE (5-7) MDD 6 TABS, #10 TAB Prov: FELIPA JAQUEZ MD 05/08/23 Copy Copies To 1: DARIUSZ YORK JOSHUA T MD May 08, 2023 15:27
[2023-05-08] MEDS ORDERED: OXYC1TAB87 PO (15:28)
[2023-05-08] MEDS ORDERED: PRD20T PO (15:28)
[2023-05-08 15:40] VITALS: BP 147/70
== END 2023-05-08 15:39 | disposition home or self-care (01) ==
LOC: EDUNIT# 14:39 → ER 14:41
DX: M46.1 Sacroiliitis, not elsewhere classified (principal); M54.16 Radiculopathy, lumbar region; E11.9 Type 2 diabetes mellitus without complications; Z79.4 Long term (current) use of insulin; Z88.5 Allergy status to narcotic agent
CPT/HCPCS: 99281

== ENCOUNTER 2023-07-13 08:37 | Outpatient (RCR) | payer MEDICARE, MEDICAID ==
[2023-07-13 08:57] LABS: BASOPHILS # (AUTO) 0.1 10^3/uL (0.0-0.1); BASOPHILS % (AUTO) 1 % (0-10); EOSINOPHILS # (AUTO) 0.6 10^3/uL (0.0-0.3); EOSINOPHILS % (AUTO) 6 % (0-10); HEMATOCRIT 43 % (35-52); LYMPHOCYTES # (AUTO) 5.5 10^3/uL (1.0-4.0); LYMPHOCYTES % (AUTO) 49 % (12-44); MEAN CORPUSCULAR HEMOGLOBIN 29 pg (25-34); MEAN CORPUSCULAR HGB CONC 33 g/dL (32-36); MEAN CORPUSCULAR VOLUME 90 fL (80-99); MEAN PLATELET VOLUME 10.2 fL (9.0-12.2); MONOCYTES # (AUTO) 1.1 10^3/uL (0.0-1.0); MONOCYTES % (AUTO) 10 % (0-12); NEUTROPHILS # (AUTO) 3.8 10^3/uL (1.8-7.8); NEUTROPHILS % (AUTO) 34 % (42-75); PLATELET COUNT 362 10^3/uL (130-400); WHITE BLOOD COUNT 11.2 10^3/uL (4.3-11.0)
[2023-07-13 09:24] LABS: ALBUMIN 3.7 GM/DL (3.2-4.5); BILIRUBIN,TOTAL 0.8 MG/DL (0.1-1.0); CALCIUM 9.5 MG/DL (8.5-10.1); CREATININE SERUM 0.95 MG/DL (0.60-1.30); POTASSIUM 3.6 MMOL/L (3.6-5.0); TOTAL PROTEIN 6.6 GM/DL (6.4-8.2)
[2023-07-14 04:30] LABS: FK506 4.6 ng/mL
== END 2023-07-30 | disposition home or self-care (01) ==
LOC: LAB 08:37
PROVIDERS: ATTEND Registered Nurse
DX: Z94.4 Liver transplant status (principal); Z79.899 Other long term (current) drug therapy
CPT/HCPCS: 36415; 80053; 80197; 82306; 82570; 82977; 84156; 85025

== ENCOUNTER → 2023-07-13 | Outpatient (CLI) | payer MEDICARE, MEDICAID ==
[~2023-07-13] MED LIST changes: +OXYC1TAB87 PO; +PRD20T PO
--- NOTE | 2023-07-13 11:03 | Diagnostic Imaging Report ---
Indication: Routine screening. Comparison is made with prior mammogram from 04/14/2022 and 08/16/2020. 2-D and 3-D bilateral screening mammography was performed with CAD. The current study was also evaluated with a Computer Aided Detection (CAD) system. Scattered fibroglandular densities are identified bilaterally. The parenchymal pattern is stable. No mass or malignant-appearing microcalcifications are seen. There are benign calcifications bilaterally. The axillae are unremarkable. IMPRESSION: BI-RADS Category 2 No mammographic features suspicious for malignancy are identified. ACR BI-RADS Category 2: Benign findings. Result letter will be mailed to the patient. Note: At least 10% of breast cancer is not imaged by mammography. Dictated by: Dictated on workstation # [id number]
== END ==
LOC: RAD 08:21
PROVIDERS: ATTEND Internal Medicine
DX: Z12.31 Encounter for screening mammogram for malignant neoplasm of breast (principal)
CPT/HCPCS: 77063; 77067

== ENCOUNTER 2023-10-06 16:12 | Emergency (ER) | payer MEDICARE, MEDICAID ==
[~2023-10-06] VITALS: Ht 170 cm; Wt 90.7 kg
--- NOTE | 2023-10-06 17:54 | ED Headache ---
General Chief Complaint: Head/Cervical Problems Stated Complaint: HEAD INJ | Nursing Triage Note: PT AMBULATORY TO ER WITH FAMILY. PT REPORTS ON THURSDAY BENT OVER RIGHT WHEN HER DOG WAS JUMPING UP, HIT THE TOP OF HER HEAD ON THE DOG'S HEAD, DENIES LOC. PT C/O CONTINUED PAIN TO HEAD, REPORTS LIGHT SENSITIVE, DENIES N/V. Source: patient Exam Limitations: no limitations (SACHI JIMENEZ) History of Present Illness Date Seen by Provider: Oct 06, 2023 Time Seen by Provider: 17:51 Initial Comments Patient is a 68-year-old female who presents to the ED for a head injury. This occurred Thursday. She states she bent over right when her dog was jumping and they hit heads. No loss of conscious. Since then she has had a headache worse as the day goes on. Pain to the top of the heart. She reports a small contusion to the top frontal scalp. Denies any bleeding or on blood thinners. Does take an aspirin. She reports sensitive light sensitive and noise. Has been taken anti-inflammatories. Was seen at [facility] was sent to ED for further evaluation. Patient denies any unilateral weakness, neck pain, chest pain, shortness of breath, vomiting, diarrhea, back pain. (SACHI JIMENEZ) Allergies and Home Medications Allergies Coded Allergies: Sulfa (Sulfonamide Antibiotics) (Verified Allergy, Unknown, 06/14/09) codeine (Verified Allergy, Unknown, 06/14/09) diazepam (Verified Allergy, Unknown, 06/14/09) Uncoded Allergies: TAPE (Allergy, Unknown, 06/14/09) Patient Home Medication List Home Medication List Reviewed: Yes (SACHI JIMENEZ) Allopurinol (Allopurinol) 100 Mg Tablet, 100 MG PO BID, (Reported) Entered as Reported by: DEVANG NEWTON on 04/06/19901 Aspirin (Aspirin EC) 81 Mg Tablet.dr, 81 MG PO 1500, (Reported) Entered as Reported by: DEVANG NEWTON on 04/06/19908 Biotin (Biotin) 1,000 Mcg Tablet, 1,000 MCG PO HS, (Reported) Entered as Reported by: DEVANG NEWTON on 04/06/19908 Calcium Carbonate/Vitamin D3 (Caltrate 600 + D Tablet) 1 Each Tablet, 1 TAB PO DAILY, (Reported) Entered as Reported by: DEVANG NEWTON on 04/06/19915 Carvedilol (Carvedilol) 6.25 Mg Tablet, 6.25 MG PO BID, (Reported) Entered as Reported by: DEVANG NEWTON on 04/06/19901 Cholecalciferol (Vitamin D3) (Vitamin D3) 1,000 Unit Capsule, 2,000 UNIT PO 1100, (Reported) Entered as Reported by: DEVANG NEWTON on 04/06/19908 Furosemide (Furosemide) 40 Mg Tablet, 40 MG PO BID, (Reported) Entered as Reported by: DEVANG NEWTON on 04/06/19901 Hydroxyzine Pamoate (Hydroxyzine Pamoate) 50 Mg Capsule, 50 MG PO HS, (Reported) Entered as Reported by: DEVANG NEWTON on 04/06/19901 Insulin Degludec (Tresiba Flextouch U-100) 100 Unit/1 Ml Insuln.pen, 36 UNITS SC DAILY, (Reported) Entered as Reported by: DEVANG NEWTON on 04/06/19901 Liraglutide (Victoza 3-Stuart) 0.6 Mg/0.1 Ml Pen.injctr, 1.8 MG SC DAILY, (Reported) Entered as Reported by: DEVANG NEWTON on 04/06/19901 Magnesium Oxide (Magnesium) 400 Mg Tablet, 400 MG PO BID, (Reported) Entered as Reported by: DEVANG NEWTON on 04/06/19908 Melatonin (Melatonin) 10 Mg Tablet, 10 MG PO HS, (Reported) Entered as Reported by: DEVANG NEWTON on 04/06/19908 Mometasone Furoate (Mometasone Furoate) 17 Gm [place].pump, 2 SPRAYS NS DAILY PRN for CONGESTION, (Reported) Entered as Reported by: DEVANG NEWTON on 04/06/19901 Multivit-Min/FA/Lycopene/Lut (Centrum Silver Tablet) 1 Each Tablet, 1 TAB PO DAILY, (Reported) Entered as Reported by: DEVANG NEWTON on 04/06/19908 Mycophenolate Mofetil (Mycophenolate Mofetil) 250 Mg Capsule, 250 MG PO BID, (Reported) Entered as Reported by: DEVANG NEWTON on 04/06/19901 Niacinamide (Niacin) 500 Mg Tablet, 1,000 MG PO HS, (Reported) Entered as Reported by: DEVANG NEWTON on 04/06/19 09 Ondansetron (Ondansetron Odt) 4 Mg Tab.rapdis, 4 MG PO Q4H Prescribed by: DENISHA MASCORRO on 01/29/22 2258 Oxycodone HCl/Acetaminophen (Percocet 5-325 mg Tablet) 1 Each Tablet, 0.5-1 TAB PO Q4H PRN for PAIN-MODERATE (5-7) Prescribed by: FELIPA MAY on 05/08/23 1529 Potassium Chloride (Potassium Chloride) 10 Meq Tablet.er, 10 MEQ PO BID, (Reported) Entered as Reported by: DEVANG NEWTON on 04/06/19 0832 Prednisone (Prednisone) 20 Mg Tab, 20 MG PO DAILY Prescribed by: FELIPA MAY on 05/08/23 1528 Red Yeast Rice (Red Yeast Rice) 600 Mg Capsule, 1,200 MG PO HS, (Reported) Entered as Reported by: DEVANG NEWTON on 04/06/19908 Tacrolimus (Tacrolimus) 0.5 Mg Capsule, 0.5 MG PO BID, (Reported) Entered as Reported by: DEVANG NEWTON on 04/06/19901 Trazodone HCl (Trazodone HCl) 100 Mg Tablet, 100 MG PO HS PRN for SLEEP, (Reported) Entered as Reported by: DEVANG NEWTON on 04/06/19901 Review of Systems Review of Systems Constitutional: No chills, No diaphoresis, No malaise, No weakness Eyes: Denies Blindness, Denies Blurred Vision, Denies Drainage Ears, Nose, Mouth, Throat: denies ear pain, denies ear discharge Respiratory: No cough, No dyspnea on exertion Cardiovascular: No chest pain Gastrointestinal: No abdominal pain, No diarrhea; nausea; No vomiting Genitourinary: No decreased output, No discharge Musculoskeletal: No back pain, No joint pain Skin: No change in color, No change in hair/nails (SACHI JIMENEZ) All Other Systems Reviewed Negative Unless Noted: Yes (SACHI JIMENEZ) Past Iqwjbfx-Syvaft-Djzgnp Hx Patient Social History Tobacco Use?: No Use of E-Cig and/or Vaping dev: No Substance use?: No Alcohol Use?: No Pt feels they are or have been: No (SACHI JIMENEZ) Immunizations Up To Date Tetanus Booster (TDap): Unknown PED Vaccines UTD: Yes First/Initial COVID19 Vaccinat: RECEIVED, UNK WHEN Second COVID19 Vaccination Андрей: RECEIVED, UNK WHEN Third COVID19 Vaccination Date: RECEIVED, UNK WHEN (SACHI JIMENEZ) Seasonal Allergies Seasonal Allergies: No (SACHI JIMENEZ) Past Medical History Surgery/Hospitalization HX: LIVER TRANSPLANT, RECENT COLONSCOPY, R RIB OUT, STENT IN HEART, HYST, CHF, GASTRIC SLEEVE, DM, HTN Surgeries: Yes Abdominal, Gallbladder, Hysterectomy, Liver Transplant, Tonsillectomy Respiratory: Yes (RIGHT LUNG "SCRAPED" AND RIB REMOVED 1998) Cardiac: Yes (STENT X 1; "ANEURYSM BEHIND SPLEEN" ) Chronic Edema/Swelling, Coronary Artery Disease, High Cholesterol, Hypertension 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 Genitourinary: No Gastrointestinal: Yes Liver Disease/Jaundice, Hepatitis Musculoskeletal: No Endocrine: Yes Diabetes, Insulin dep HEENT: No Tonsilitis Cancer: No Psychosocial: Yes (HX OF POLYSUBSTANCE ABUSE) Integumentary: No Blood Disorders: No (SACHI JIMENEZ) Family Medical History Cirrhosis of liver 19 MOTHER, , Onset:60 years & older Diabetes mellitus 19 MOTHER, , Onset:Unknown FH: CHF (congestive heart failure) 19 FATHER, , Onset:60 years & older FH: CVA (cerebrovascular accident) 19 MOTHER, , Onset:60 years & older FH: cerebral palsy G8 BROTHER, , Onset:Childhood FH: ovarian cancer G8 SISTER, , Onset:40's - 50 Myocardial infarction 19 MOTHER, , Onset:60 years & older Stillbirth G8 BROTHER, , Onset:[place] Physical Exam Vital Signs Vital Signs - First Documented 10/06/23 16:30 Temp 36.8 Pulse 60 Resp 18 B/P (MAP) 139/66 (90) Pulse Ox 96 O2 Delivery Room Air (FELIPA JAQUEZ MD) Vital Signs Capillary Refill : (SACIH JIMENEZ) Height, Weight, BMI Height: 5'7.00" Weight: 238lbs. 0.0oz. 107.297504sx; 31.00 BMI Method:Stated General Appearance: WD/WN, no apparent distress HEENT: PERRL/EOMI, normal ENT inspection, TMs normal, pharynx normal, other (Frontal scalp tenderness with very small contusion. No crepitus or step-off.) Neck: non-tender, full range of motion, supple Cardiovascular: regular rate, rhythm, no edema, no gallop, no JVD Respiratory: chest non-tender, lungs clear, normal breath sounds, no respiratory distress Gastrointestinal: normal bowel sounds, non tender, soft, no organomegaly Back: normal inspection, no CVA tenderness, no vertebral tenderness Extremities: normal range of motion, non-tender, normal inspection, no pedal edema Coordination/Gait: normal finger to nose, normal gait Motor/Sensory: no motor deficit, no sensory deficit, no pronator drift Skin: normal color, warm/dry (SACHI JIMENEZ) Progress/Results/Core Measures Results/Orders Vital Signs/I&O 10/06/23 10/06/23 16:30 18:23 Temp 36.8 Pulse 60 65 Resp 18 16 B/P (MAP) 139/66 (90) 130/77 Pulse Ox 96 97 O2 Delivery Room Air Room Air (FELIPA JAQUEZ MD) Blood Pressure Mean: 90 Departure Communication (PCP) Patient with a head injury on Thursday. No loss of conscious or on blood thinners. Patient Was seen at [facility] sent to the ED to rule out intracranial bleed. Patient with concussion-like symptoms. Obtained a CT scan the head which was negative for acute abnormality. No cervical midline tenderness. Suspect that this is a concussion with the photophobia phonophobia headache. She has no focal neural deficits. No vomiting visual changes. At this time wi ll recommend rest avoid strenuous activity until symptoms improve. Follow-up with PCP in 2 to 3 days for reevaluation. Suggest alternate Tylenol ibuprofen. If any worsening symptoms return back to ED for further evaluation. Follow-up with PCP in 2 to 3 days for reevaluation. (SACHI JIMENEZ) Impression Primary Impression: Concussion Disposition: 01 HOME, SELF-CARE Condition: Stable Departure-Patient Inst. Decision time for Depature: 17:54 (SACHI JIMENEZ) Referrals: DARIUSZ YORK DO (PCP/Family) Primary Care Physician Patient Instructions: Concussion in adults Add. Discharge Instructions: Recommend rest avoid strenuous activities, anti-inflammatories. Follow-up your PCP in 2 to 3 days for reevaluation. All discharge instructions reviewed with patient and/or family. Voiced understanding. ATTENDING PHYSICIAN NOTE: I was physically present as attending physician in the emergency department during the care of this patient, but I was not directly involved in the decision making or delivery of care for this patient. (FELIPA JAQUEZ MD) SACHI JIMENEZ Oct 06, 2023 17:54 FELIPA JAQUEZ MD Oct 07, 2023 17:18
--- NOTE | 2023-10-06 18:12 | Diagnostic Imaging Report ---
EXAMINATION: CT head without contrast. TECHNIQUE: Multiple contiguous axial images were obtained through the brain without the use of intravenous contrast. All CT scans use one or more of the following dose optimizing techniques: automated exposure control, MA and/or KvP adjustment based on patient size and exam type or iterative reconstruction. HISTORY: Head pain after injury COMPARISON: None available. FINDINGS: Mild diffuse cerebral volume loss with proportional enlargement of the ventricles and sulci. Mild hypodensities throughout the supratentorial white matter of both cerebral hemispheres. No acute intracranial hemorrhage or abnormal extra-axial fluid collections are present. No hyperdense vessel. The calvarium is intact. The mastoid air cells are clear. The visualized paranasal sinuses are clear. Surgical changes from bilateral cataract repair. IMPRESSION: 1. No acute intracranial abnormality. 2. Mild chronic microangiopathy and volume loss. Dictated by: Dictated on workstation # [id number]
[2023-10-06 18:23] VITALS: BP 130/77
== END 2023-10-06 18:23 | disposition home or self-care (01) ==
LOC: EDUNIT# 16:12 → ER 16:13
DX: S06.0X0A Concussion without loss of consciousness, initial encounter (principal); W54.1XXA Struck by dog, initial encounter
CPT/HCPCS: 70450